=== PATIENT | female | born 1935 | race Caucasian/White ===

== ENCOUNTER 2017-09-27 10:17 | Emergency (ER) | payer MEDICARE, MEDICAID ==
[~2017-09-27] VITALS: Ht 162.6 cm; Wt 81.8 kg
[~2017-09-27 10:17] MED LIST: ALBU6.7H INH; ASCO500T9; ASPI325T53 PO; CLOP75TA15 PO; CLOP75TA35 PO; DOCU-28 PO; FENTANYL PO; FLAX100010 PO; FLUT1DIS INH; GABA-532 PO; GABA600T2 PO; LEVO75TA7 PO; MAGN500T12 PO; METH-234 PO; OMEG300C2 PO; OMEP20CA4 PO; POLY119P2 PO; ROSU10TA PO; SELE200T25 PO; SIMV20TA5 PO
[2017-09-27] MEDS ORDERED: lactulose 20gm/30ml cup PO ONE (11:05)
[2017-09-27 11:39] LABS: BASOPHILS % (AUTO) 0.3 % (0-1); EOSINOPHILS # (AUTO) 0.1 X10'3 (0-0.9); HEMATOCRIT 38.2 % (35.0-45.0); LYMPHOCYTES # (AUTO) 1.6 X10'3 (1.1-4.8); LYMPHOCYTES % (AUTO) 14.6 % (21-51); MEAN CORPUSCULAR HEMOGLOBIN 28.4 PG (27.0-31.0); MEAN CORPUSCULAR VOLUME 83.6 FL (78-98); MEAN PLATELET VOLUME 6.8 FL (7.4-10.4); MONOCYTES # (AUTO) 1.1 X10'3 (0-0.9); MONOCYTES % (AUTO) 9.4 % (2-12); NEUTROPHILS # (AUTO) 8.3 X10'3 (1.8-7.7); NEUTROPHILS % (AUTO) 74.7 % (42-75); PLATELET COUNT 268 X10'3 (140-440); RED BLOOD COUNT 4.56 X10'6 (4.20-5.60); RED CELL DISTRIBUTION WIDTH 14.2 % (11.5-14.5); WHITE BLOOD COUNT 11.2 X10'3 (4.5-11.0)
[2017-09-27 11:55] LABS: ALANINE AMINOTRANSFERASE 22 U/L (12-78); ALBUMIN 3.2 G/DL (3.4-5.0); ALBUMIN/GLOBULIN RATIO 0.9 (1.1-1.5); ALKALINE PHOSPHATASE 54 IU/L (46-116); ANION GAP 8 (8-16); ASPARTATE AMINO TRANSFERASE 19 U/L (10-37); BILIRUBIN,TOTAL 0.6 MG/DL (0.1-1.0); BLOOD UREA NITROGEN 14 MG/DL (7-18); BUN/CREATININE RATIO 17.1 (6.6-38.0); CALCIUM 8.5 MG/DL (8.5-10.1); CHLORIDE 105 MMOL/L (99-107); CREATININE 0.82 MG/DL (0.40-0.90); GLUCOSE 107 MG/DL (70-104); POTASSIUM 3.7 MMOL/L (3.5-5.1); SODIUM 143 MMOL/L (135-145); TOTAL CARBON DIOXIDE 30.5 MMOL/L (24-32); TOTAL PROTEIN 6.7 G/DL (6.4-8.2); eGFR 67 ML/MIN
[2017-09-27] MEDS ORDERED: MAGN296S50 PO (12:25)
[2017-09-27 12:36] VITALS: BP 121/68
== END 2017-09-27 13:07 | disposition home or self-care (01) ==
LOC: ER 10:17
DX: K59.00 Constipation, unspecified (principal); F17.200 Nicotine dependence, unspecified, uncomplicated; I25.10 Atherosclerotic heart disease of native coronary artery without angina pectoris; J45.909 Unspecified asthma, uncomplicated; E11.9 Type 2 diabetes mellitus without complications; G89.29 Other chronic pain; Z90.49 Acquired absence of other specified parts of digestive tract; Z98.890 Other specified postprocedural states; Z88.0 Allergy status to penicillin; Z88.5 Allergy status to narcotic agent; Z91.018 Allergy to other foods; Z79.82 Long term (current) use of aspirin
CPT/HCPCS: 36415; 74176; 80053; 85025; 99285

== ENCOUNTER 2018-10-06 10:46 | Emergency (ER) | payer MEDICARE, MEDICAID ==
[~2018-10-06] VITALS: Ht 160 cm; Wt 85.0 kg
[~2018-10-06 10:46] MED LIST changes: +GABA600T13 PO; -GABA600T2 PO; +MAGN296S50 PO; -ROSU10TA PO; +ROSU10TA2 PO
[2018-10-06] MEDS ORDERED: magnesium hydroxide 30ml (MOM) UD suspension PO ONE (11:15)
[2018-10-06] MEDS ORDERED: bisacodyl 5mg tablet.DR PO PRN (11:15)
[2018-10-06] MEDS ORDERED: lactulose 20gm/30ml cup PO ONE (11:15)
[2018-10-06] MEDS ORDERED: normal saline 1000ML IV soln IVB ONE (11:15)
[2018-10-06] MEDS ORDERED: potassium Cl 20 mEq SR tablet PO STA (11:15)
[2018-10-06 11:17] LABS: BASOPHILS # (AUTO) 0.1 X10'3 (0-0.2); EOSINOPHILS # (AUTO) 0.1 X10'3 (0-0.9); EOSINOPHILS % (AUTO) 1.1 % (0-6); HEMATOCRIT 40.1 % (35.0-45.0); HEMOGLOBIN 13.5 g/dl (12.0-16.0); LYMPHOCYTES % (AUTO) 20.7 % (21-51); MEAN CORPUSCULAR HEMOGLOBIN 28.7 PG (27.0-31.0); MEAN CORPUSCULAR HGB CONC 33.6 g/dL (33.0-36.5); MEAN CORPUSCULAR VOLUME 85.4 FL (78-98); MEAN PLATELET VOLUME 6.7 FL (7.4-10.4); MONOCYTES # (AUTO) 0.9 X10'3 (0-0.9); MONOCYTES % (AUTO) 9.6 % (2-12); NEUTROPHILS # (AUTO) 6.4 X10'3 (1.8-7.7); NEUTROPHILS % (AUTO) 67.6 % (42-75); PLATELET COUNT 338 X10'3 (140-440); RED CELL DISTRIBUTION WIDTH 14.5 % (11.5-14.5); WHITE BLOOD COUNT 9.5 X10'3 (4.5-11.0)
[2018-10-06 11:25] LABS: PROTHROMBIN TIME 10.4 SECONDS (9.0-12.0)
[2018-10-06 11:29] LABS: ALANINE AMINOTRANSFERASE 19 U/L (12-78); ALBUMIN 3.7 G/DL (3.4-5.0); ALKALINE PHOSPHATASE 65 IU/L (46-116); ANION GAP 11 (8-16); ASPARTATE AMINO TRANSFERASE 19 U/L (10-37); BILIRUBIN,TOTAL 0.5 MG/DL (0.1-1.0); BLOOD UREA NITROGEN 17 MG/DL (7-18); BUN/CREATININE RATIO 15.7 (6.6-38.0); CALCIUM 8.8 MG/DL (8.5-10.1); CHLORIDE 104 MMOL/L (99-107); CREATININE 1.08 MG/DL (0.40-0.90); GLUCOSE 133 MG/DL (70-104); POTASSIUM 3.2 MMOL/L (3.5-5.1); SODIUM 142 MMOL/L (135-145); TOTAL CARBON DIOXIDE 26.7 MMOL/L (24-32); TOTAL PROTEIN 7.4 G/DL (6.4-8.2); eGFR 49 ML/MIN
[2018-10-06 13:04] LABS: CLARITY,URINE SLIGHTLY CLOUDY (Clear); COLOR,URINE YELLOW (Yellow); GLUCOSE, URINE NEGATIVE (Neg); KETONES,URINE 40 mg/dl (Neg); LEUKOCYTE ESTERASE ,URINE NEGATIVE (Neg); NITRITES, URINE NEGATIVE (Neg); OCCULT BLOOD,URINE SMALL (Neg); PROTEIN,URINE NEGATIVE (Neg); UROBILINOGEN,URINE 0.2 E.U/dL (0.2-1.0)
[2018-10-06 13:08] LABS: UA COLLECTION TYPE CLN CATCH MIDSTREAM
[2018-10-06 13:17] LABS: HYALINE CASTS 0-3 /LPF (NEGATIVE); MUCUS STRANDS FEW /LPF (Neg); SQUAMOUS EPITHELIAL CELL,UR MODERATE /LPF (FEW)
[2018-10-06 13:18] LABS: RBC,URINE 20-50 /HPF (0-2)
[2018-10-06 13:19] LABS: WBC,URINE 0-4 /HPF (0-4)
[2018-10-06 13:20] LABS: BACTERIA,URINE FEW /HPF (Neg)
[2018-10-06 14:36] VITALS: BP 124/65
[2018-10-06] MEDS ORDERED: POTA20TA19 PO (14:41)
== END 2018-10-06 14:53 | disposition home or self-care (01) ==
LOC: ER 10:47
DX: K59.00 Constipation, unspecified (principal); I25.10 Atherosclerotic heart disease of native coronary artery without angina pectoris; J45.909 Unspecified asthma, uncomplicated; E11.9 Type 2 diabetes mellitus without complications; G89.29 Other chronic pain; Z90.49 Acquired absence of other specified parts of digestive tract; Z98.890 Other specified postprocedural states; Z88.0 Allergy status to penicillin; Z91.018 Allergy to other foods; Z88.8 Allergy status to other drugs, medicaments and biological substances; Z79.82 Long term (current) use of aspirin; Z79.899 Other long term (current) drug therapy
CPT/HCPCS: 36415; 80053; 81001; 85025; 85610; 99284; J7030

== ENCOUNTER 2019-04-16 09:31 | Emergency (ER) | payer MEDICARE, MEDICAID ==
[~2019-04-16] VITALS: Ht 162.6 cm; Wt 77.3 kg
[~2019-04-16 09:31] MED LIST changes: -ALBU6.7H INH; +ALBU6.7H9 INH; -ASPI325T53 PO; +SIMV-42 PO; -SIMV20TA5 PO; +[UNRECOGNIZED DRUG - CODE] PO
[2019-04-16 10:36] LABS: BASOPHILS # (AUTO) 0.1 X10'3 (0-0.2); BASOPHILS % (AUTO) 1.4 % (0-1); EOSINOPHILS # (AUTO) 0.2 X10'3 (0-0.9); EOSINOPHILS % (AUTO) 5.5 % (0-6); HEMATOCRIT 39.3 % (35.0-45.0); LYMPHOCYTES # (AUTO) 1.6 X10'3 (1.1-4.8); LYMPHOCYTES % (AUTO) 38.4 % (21-51); MEAN CORPUSCULAR HEMOGLOBIN 27.6 PG (27.0-31.0); MEAN CORPUSCULAR HGB CONC 33.2 g/dL (33.0-36.5); MEAN CORPUSCULAR VOLUME 83.2 FL (78-98); MEAN PLATELET VOLUME 6.7 FL (7.4-10.4); MONOCYTES # (AUTO) 0.5 X10'3 (0-0.9); MONOCYTES % (AUTO) 12.9 % (2-12); NEUTROPHILS # (AUTO) 1.8 X10'3 (1.8-7.7); NEUTROPHILS % (AUTO) 41.8 % (42-75); PLATELET COUNT 260 X10'3 (140-440); RED BLOOD COUNT 4.72 X10'6 (4.20-5.60); WHITE BLOOD COUNT 4.2 X10'3 (4.5-11.0)
[2019-04-16 10:45] LABS: CLARITY,URINE CLEAR (Clear); COLOR,URINE YELLOW (Yellow); GLUCOSE, URINE NEGATIVE (Neg); KETONES,URINE NEGATIVE (Neg); LEUKOCYTE ESTERASE ,URINE NEGATIVE (Neg); NITRITES, URINE NEGATIVE (Neg); OCCULT BLOOD,URINE MODERATE (Neg); PH,URINE 6.5 (4.8-8.0); PROTEIN,URINE NEGATIVE (Neg); UROBILINOGEN,URINE 0.2 E.U/dL (0.2-1.0)
[2019-04-16 10:46] LABS: UA COLLECTION TYPE STRAIGHT CATH
[2019-04-16 10:50] LABS: ALANINE AMINOTRANSFERASE 18 U/L (12-78); ALBUMIN 3.3 G/DL (3.4-5.0); ALKALINE PHOSPHATASE 52 IU/L (46-116); ANION GAP 7 (8-16); ASPARTATE AMINO TRANSFERASE 16 U/L (10-37); BILIRUBIN,TOTAL 0.2 MG/DL (0.1-1.0); BLOOD UREA NITROGEN 11 MG/DL (7-18); BUN/CREATININE RATIO 12.8 (6.6-38.0); CALCIUM 8.6 MG/DL (8.5-10.1); CHLORIDE 109 MMOL/L (99-107); CREATININE 0.86 MG/DL (0.40-0.90); GLUCOSE 99 MG/DL (70-104); POTASSIUM 3.9 MMOL/L (3.5-5.1); SODIUM 145 MMOL/L (135-145); TOTAL CARBON DIOXIDE 28.9 MMOL/L (24-32); TOTAL PROTEIN 6.7 G/DL (6.4-8.2); eGFR 63 ML/MIN
[2019-04-16 11:19] LABS: BACTERIA,URINE FEW /HPF (Neg); SQUAMOUS EPITHELIAL CELL,UR FEW /LPF (FEW)
[2019-04-16 11:20] LABS: WBC,URINE 0-4 /HPF (0-4)
[2019-04-16] MEDS ORDERED: normal saline 1000ML IV soln IVB ONE (12:05)
[2019-04-16] MEDS ORDERED: morphine 4 MG/ML inj SYRINge IV PRN (12:05)
[2019-04-16] MEDS ORDERED: ondansetron/PF 4mg/2ml inj IV ONE (12:05)
[2019-04-16] MEDS ORDERED: METH-360 PO (13:06)
[2019-04-16 14:24] VITALS: BP 142/83
== END 2019-04-16 14:26 | disposition home or self-care (01) ==
LOC: ER 09:33
DX: S39.012A Strain of muscle, fascia and tendon of lower back, initial encounter (principal); K59.00 Constipation, unspecified; R39.198 Other difficulties with micturition; I25.10 Atherosclerotic heart disease of native coronary artery without angina pectoris; J45.909 Unspecified asthma, uncomplicated; E11.9 Type 2 diabetes mellitus without complications; G89.29 Other chronic pain; Z79.82 Long term (current) use of aspirin; Z88.0 Allergy status to penicillin; Z88.6 Allergy status to analgesic agent; Z91.018 Allergy to other foods; Z79.899 Other long term (current) drug therapy; Z90.49 Acquired absence of other specified parts of digestive tract; Z98.890 Other specified postprocedural states; Z95.1 Presence of aortocoronary bypass graft; Z86.73 Personal history of transient ischemic attack (TIA), and cerebral infarction without residual deficits; X58.XXXA Exposure to other specified factors, initial encounter; Y93.89 Activity, other specified; Y92.89 Other specified places as the place of occurrence of the external cause; Y99.8 Other external cause status
CPT/HCPCS: 36415; 74176; 80053; 81001; 85025; 85610; 96361; 96374; 96375; 99284; J2270; J2405; J7030; P9612

== ENCOUNTER 2019-05-25 15:18 | Emergency (ER) | payer MEDICARE, MEDICAID ==
[~2019-05-25] VITALS: Ht 162.6 cm; Wt 80.0 kg
[~2019-05-25 15:18] MED LIST changes: +METH-360 PO
[2019-05-25] MEDS ORDERED: LORazepam 2 mg/ml vial IV ONE (15:45)
[2019-05-25] MEDS ORDERED: normal saline 1000ML IV soln IVB ONE (15:45)
[2019-05-25 16:04] LABS: BASOPHILS % (AUTO) 0.6 % (0-1); EOSINOPHILS # (AUTO) 0.2 X10'3 (0-0.9); EOSINOPHILS % (AUTO) 2.9 % (0-6); HEMATOCRIT 40.2 % (35.0-45.0); HEMOGLOBIN 13.4 g/dl (12.0-16.0); LYMPHOCYTES # (AUTO) 2.2 X10'3 (1.1-4.8); LYMPHOCYTES % (AUTO) 39.2 % (21-51); MEAN CORPUSCULAR HEMOGLOBIN 28.2 PG (27.0-31.0); MEAN CORPUSCULAR HGB CONC 33.4 g/dL (33.0-36.5); MEAN CORPUSCULAR VOLUME 84.5 FL (78-98); MEAN PLATELET VOLUME 6.8 FL (7.4-10.4); MONOCYTES # (AUTO) 0.7 X10'3 (0-0.9); MONOCYTES % (AUTO) 11.9 % (2-12); NEUTROPHILS # (AUTO) 2.6 X10'3 (1.8-7.7); NEUTROPHILS % (AUTO) 45.4 % (42-75); PLATELET COUNT 249 X10'3 (140-440); RED BLOOD COUNT 4.76 X10'6 (4.20-5.60); RED CELL DISTRIBUTION WIDTH 14.3 % (11.5-14.5); WHITE BLOOD COUNT 5.6 X10'3 (4.5-11.0)
[2019-05-25 16:18] LABS: ALANINE AMINOTRANSFERASE 15 U/L (12-78); ALBUMIN 3.3 G/DL (3.4-5.0); ALBUMIN/GLOBULIN RATIO 0.9 (1.1-1.5); ALKALINE PHOSPHATASE 51 IU/L (46-116); ANION GAP 3 (8-16); ASPARTATE AMINO TRANSFERASE 17 U/L (10-37); BILIRUBIN,TOTAL 0.2 MG/DL (0.1-1.0); BLOOD UREA NITROGEN 21 MG/DL (7-18); BUN/CREATININE RATIO 23.9 (6.6-38.0); CALCIUM 9.1 MG/DL (8.5-10.1); CHLORIDE 107 MMOL/L (99-107); CREATININE 0.88 MG/DL (0.40-0.90); GLUCOSE 92 MG/DL (70-104); POTASSIUM 3.9 MMOL/L (3.5-5.1); SODIUM 143 MMOL/L (135-145); TOTAL CARBON DIOXIDE 32.8 MMOL/L (24-32); eGFR 62 ML/MIN
[2019-05-25 16:25] LABS: MAGNESIUM 1.6 MG/DL (1.5-2.4)
[2019-05-25 17:00] LABS: CLARITY,URINE CLEAR (Clear); COLOR,URINE YELLOW (Yellow); GLUCOSE, URINE NEGATIVE (Neg); KETONES,URINE NEGATIVE (Neg); LEUKOCYTE ESTERASE ,URINE LARGE (Neg); NITRITES, URINE NEGATIVE (Neg); OCCULT BLOOD,URINE SMALL (Neg); PH,URINE 6.5 (4.8-8.0); PROTEIN,URINE NEGATIVE (Neg); UROBILINOGEN,URINE 0.2 E.U/dL (0.2-1.0)
--- NOTE | 2019-05-25 17:10 | NUR ---
relieving RN for lunch, pt is resting quietly on gurney, resp even and unlabored, waiting for UA results, family at bedside
[2019-05-25 17:14] LABS: UA COLLECTION TYPE CLN CATCH MIDSTREAM
[2019-05-25 17:15] LABS: BACTERIA,URINE FEW /HPF (Neg); TRANSITIONAL EPI CELLS,URINE FEW /HPF; WBC CLUMPS,URINE FEW /HPF (NEGATIVE)
[2019-05-25 17:16] LABS: MUCUS STRANDS FEW /LPF (Neg); SQUAMOUS EPITHELIAL CELL,UR MODERATE /LPF (FEW)
[2019-05-25 18:12] VITALS: BP 124/73
== END 2019-05-25 18:14 | disposition home or self-care (01) ==
LOC: ER 15:19
DX: R07.89 Other chest pain (principal); R42 Dizziness and giddiness; F41.9 Anxiety disorder, unspecified; I25.10 Atherosclerotic heart disease of native coronary artery without angina pectoris; J45.909 Unspecified asthma, uncomplicated; E11.9 Type 2 diabetes mellitus without complications; G89.29 Other chronic pain; Z95.1 Presence of aortocoronary bypass graft; Z90.49 Acquired absence of other specified parts of digestive tract; Z98.890 Other specified postprocedural states; Z79.82 Long term (current) use of aspirin; Z79.899 Other long term (current) drug therapy; Z88.0 Allergy status to penicillin; Z91.018 Allergy to other foods
CPT/HCPCS: 36415; 70450; 71045; 80053; 81001; 83735; 83880; 84145; 84484; 85025; 93005; 96374; 99284; J2060; J7030

== ENCOUNTER 2020-04-14 12:32 | Observation (INO) | payer MEDICARE, MEDICAID ==
[~2020-04-14] VITALS: Ht 162.6 cm; Wt 84.1 kg
[~2020-04-14 12:32] MED LIST changes: -ASCO500T9; -MAGN296S50 PO; +MAGN296S70 PO; +[UNRECOGNIZED DRUG - CODE]
[2020-04-14] MEDS ORDERED: nitroGLYCERIN 0.4mg SUBLingual tab SL PRN ×3 (13:05→14:15)
[2020-04-14] MEDS ORDERED: aspirin 81mg tab.chew PO ONE (13:05)
[2020-04-14 13:25] LABS: BASOPHILS # (AUTO) 0.1 X10'3 (0-0.2); BASOPHILS % (AUTO) 1.1 % (0-1); EOSINOPHILS % (AUTO) 0.3 % (0-6); HEMATOCRIT 43.8 % (35.0-45.0); HEMOGLOBIN 14.4 g/dl (12.0-16.0); LYMPHOCYTES # (AUTO) 1.6 X10'3 (1.1-4.8); LYMPHOCYTES % (AUTO) 19.1 % (21-51); MEAN CORPUSCULAR HEMOGLOBIN 27.1 PG (27.0-31.0); MEAN CORPUSCULAR HGB CONC 32.7 g/dL (33.0-36.5); MEAN CORPUSCULAR VOLUME 82.8 FL (78-98); MEAN PLATELET VOLUME 7.1 FL (7.4-10.4); MONOCYTES # (AUTO) 0.6 X10'3 (0-0.9); MONOCYTES % (AUTO) 7.5 % (2-12); NEUTROPHILS # (AUTO) 6.2 X10'3 (1.8-7.7); PLATELET COUNT 300 X10'3 (140-440); RED BLOOD COUNT 5.29 X10'6 (4.20-5.60); RED CELL DISTRIBUTION WIDTH 14.4 % (11.5-14.5); WHITE BLOOD COUNT 8.6 X10'3 (4.5-11.0)
[2020-04-14 13:32] LABS: PARTIAL THROMBOPLASTIN TIME 24 SECONDS (22-32)
[2020-04-14 13:35] LABS: ALANINE AMINOTRANSFERASE 19 U/L (12-78); ALBUMIN 3.7 G/DL (3.4-5.0); ALKALINE PHOSPHATASE 51 IU/L (46-116); ANION GAP 4 (8-16); ASPARTATE AMINO TRANSFERASE 13 U/L (10-37); BILIRUBIN,TOTAL 0.5 MG/DL (0.1-1.0); BLOOD UREA NITROGEN 12 MG/DL (7-18); BUN/CREATININE RATIO 11.9 (6.6-38.0); CALCIUM 9.8 MG/DL (8.5-10.1); CHLORIDE 103 MMOL/L (99-107); CREATININE 1.01 MG/DL (0.40-0.90); GLUCOSE 142 MG/DL (70-104); POTASSIUM 3.8 MMOL/L (3.5-5.1); SODIUM 139 MMOL/L (135-145); TOTAL CARBON DIOXIDE 31.7 MMOL/L (24-32); TOTAL PROTEIN 7.5 G/DL (6.4-8.2); eGFR 52 ML/MIN
[2020-04-14 13:41] LABS: C-REACTIVE PROTEIN 0.07 MG/DL (0.0-0.5); LIPASE 51 U/L (73-393)
[2020-04-14 13:58] LABS: CLARITY,URINE SLIGHTLY CLOUDY (Clear); COLOR,URINE YELLOW (Yellow); GLUCOSE, URINE NEGATIVE (Neg); KETONES,URINE TRACE mg/dl (Neg); LEUKOCYTE ESTERASE ,URINE SMALL (Neg); NITRITES, URINE NEGATIVE (Neg); OCCULT BLOOD,URINE SMALL (Neg); PROTEIN,URINE TRACE mg/dl (Neg); UROBILINOGEN,URINE 0.2 E.U/dL (0.2-1.0)
[2020-04-14 13:59] LABS: UA COLLECTION TYPE CLN CATCH MIDSTREAM
[2020-04-14 14:04] LABS: BACTERIA,URINE 1+ /HPF (Neg); MUCUS STRANDS NONE SEEN /LPF (Neg); RBC,URINE 20-50 /HPF (0-2); SQUAMOUS EPITHELIAL CELL,UR MODERATE /LPF (FEW)
[2020-04-14 14:05] LABS: FINE GRANULAR CAST 0-3 /LPF (NEGATIVE)
--- NOTE | 2020-04-14 14:05 | NUR ---
Pt gave consent to update daughter on status. Per Lizzie, pt initially c/o abdominal pain and has a hx of constipation. Communicated information w/ primary RN Carlita.
[2020-04-14] MEDS ORDERED: glucagon, human recombinant 1mg kit SUBCUT PRN (14:15)
[2020-04-14] MEDS ORDERED: potassium CL 10mEq/100ml bag 100 ML IV PRN ×2 (14:15)
[2020-04-14] MEDS ORDERED: aminophylline 250mg/10ml inj. IV PRN (14:15)
[2020-04-14] MEDS ORDERED: mag hydrox/Alum hydrox/simeth 30ml oral suspension PO PRN (14:15)
[2020-04-14] MEDS ORDERED: potassium Cl 20 mEq SR tablet PO PRN ×2 (14:15)
[2020-04-14] MEDS ORDERED: insulin Lispro (HumaLOG) vial - multi-dose SQ SCH (14:15)
[2020-04-14] MEDS ORDERED: magnesium 4gm in 100ml NS 100 ML IV PRN (14:15)
[2020-04-14] MEDS ORDERED: HYDROcodone/acetaminophen 10/325mg tab PO PRN (14:15)
[2020-04-14] MEDS ORDERED: magnesium Cl slow-release 64mg tablet PO PRN (14:15)
[2020-04-14] MEDS ORDERED: dextrose ORAL solution 15 GM/59 ML bottle PO PRN ×2 (14:15)
[2020-04-14] MEDS ORDERED: acetaminophen 325mg tablet PO PRN ×2 (14:15)
[2020-04-14] MEDS ORDERED: ondansetron/PF 4mg/2ml inj IV PRN (14:15)
[2020-04-14] MEDS ORDERED: HYDROcodone/acetaminophen 5mg/325mg tablet PO PRN (14:15)
[2020-04-14] MEDS ORDERED: regadenoson 0.4mg/5ml syringe IV PRN (14:15)
[2020-04-14] MEDS ORDERED: metoprolol tartrate 1mg/ml inj IV PRN (14:15)
[2020-04-14] MEDS ORDERED: dextrose 50%-water 50ml dispensing syringe IV PRN ×2 (14:15)
[2020-04-14] MEDS ORDERED: MESSAGE TO PHARMACY PO ONE (14:15)
[2020-04-14] MEDS ORDERED: magnesium 2GM in 50ml NS 50 ML IV PRN (14:15)
[2020-04-14] MEDS ORDERED: DOCU100C40 PO (14:17)
[2020-04-14] MEDS: normal saline 1000ml 1,000 ML IV SCH (14:51)
[2020-04-14] MEDS ORDERED: NIA500ERT PO (14:58)
[2020-04-14] MEDS ORDERED: MAGN400O6 PO (14:58)
[2020-04-14] MEDS ORDERED: SIMV10TA2 PO (14:58)
[2020-04-14] MEDS ORDERED: SENN-263 PO (14:58)
[2020-04-14] MEDS ORDERED: [UNRECOGNIZED DRUG - CODE] (15:02)
[2020-04-14] MEDS ORDERED: CHL4T (15:02)
[2020-04-14] MEDS ORDERED: ALEN70TA60 PO (15:02)
[2020-04-14] MEDS ORDERED: calcium PO (15:02)
[2020-04-14] MEDS ORDERED: [UNRECOGNIZED DRUG - OTHER] PO (15:04)
[2020-04-14] MEDS ORDERED: OMEG-79 PO (15:04)
[2020-04-14] MEDS ORDERED: ESTER C PO (15:04)
[2020-04-14] MEDS ORDERED: heparin 10,000 units/1 ML INJ IV ONE (15:25)
[2020-04-14] MEDS ORDERED: non-formulary drug (Alendronate Sodium* (Fosamax*) 1 TAB) PO SCH (15:25)
[2020-04-14] MEDS ORDERED: heparin 10,000 units/1 ML INJ IV PRN (15:25)
[2020-04-14] MEDS ORDERED: heparin 25,000 UNIT/250ml bag 250 ML IV SCH (15:25)
[2020-04-14] MEDS: heparin 25,000 UNIT/250ml bag 250 ML IV SCH (16:52)
--- NOTE | 2020-04-14 17:01 | NUR ---
PT'S daughter called and asked to be called when the pt gets a room assignment. updated her on the plan.
[2020-04-14 17:32] LABS: HEMOGLOBIN A1C 6.5 % (4.5-6.2)
--- NOTE | 2020-04-14 18:07 | NUR ---
pt eating her dinner.
[2020-04-14 19:45] VITALS: BP 167/80
--- NOTE | 2020-04-14 19:45 | NUR ---
I have received report from Yadira HANCOCK and had the opportunity to ask questions and assume patient care.
--- NOTE | 2020-04-14 19:50 | NUR ---
pt to floor
[2020-04-14] MEDS: K and/or MAG REPLACEMENT MC SCH (20:00)
[2020-04-14] MEDS: gabapentin 300mg capsule PO SCH (20:28)
[2020-04-14] MEDS: sennosides 8.6mg tablet PO SCH (20:29)
[2020-04-14] MEDS: docusate sod 100mg capsule PO SCH (20:29)
[2020-04-14] MEDS ORDERED: insulin glargine (Lantus) pen - multi-dose SQ SCH (21:00)
[2020-04-14] MEDS ORDERED: atorvastatin 10mg tablet PO SCH (21:00)
[2020-04-14 22:00] VITALS: BP 133/67
[2020-04-14 23:47] LABS: PARTIAL THROMBOPLASTIN TIME 61 SECONDS (22-32)
[2020-04-15] VITALS (8 sets, daily range): BP systolic 93–137; BP diastolic 53–78
[2020-04-15] MEDS: heparin 25,000 UNIT/250ml bag 250 ML IV SCH ×4 (00:10→07:24)
--- NOTE | 2020-04-15 00:10 | NUR ---
Heprin drip decreased 1 unit per protocol
--- NOTE | 2020-04-15 02:30 | NUR ---
Pharmacy deleted and re-add Heprin rx to eMAR, Heprin drip decreased 1 unit (from 10mL/hr to 9mL/hr).
[2020-04-15] MEDS: normal saline 1000ml 1,000 ML IV SCH (03:45)
--- NOTE | 2020-04-15 06:41 | NUR ---
Problems reprioritized. Patient report given, questions answered & plan of care reviewed with Rand HANCOCK.
[2020-04-15 06:51] LABS: BASOPHILS # (AUTO) 0.1 X10'3 (0-0.2); BASOPHILS % (AUTO) 1.5 % (0-1); EOSINOPHILS # (AUTO) 0.2 X10'3 (0-0.9); EOSINOPHILS % (AUTO) 3.4 % (0-6); HEMATOCRIT 38.8 % (35.0-45.0); HEMOGLOBIN 12.8 g/dl (12.0-16.0); LYMPHOCYTES # (AUTO) 1.8 X10'3 (1.1-4.8); LYMPHOCYTES % (AUTO) 37.9 % (21-51); MEAN CORPUSCULAR HEMOGLOBIN 27.3 PG (27.0-31.0); MEAN CORPUSCULAR HGB CONC 33.1 g/dL (33.0-36.5); MEAN CORPUSCULAR VOLUME 82.6 FL (78-98); MEAN PLATELET VOLUME 7.2 FL (7.4-10.4); MONOCYTES # (AUTO) 0.6 X10'3 (0-0.9); MONOCYTES % (AUTO) 12.6 % (2-12); NEUTROPHILS # (AUTO) 2.2 X10'3 (1.8-7.7); NEUTROPHILS % (AUTO) 44.6 % (42-75); PLATELET COUNT 260 X10'3 (140-440); WHITE BLOOD COUNT 4.8 X10'3 (4.5-11.0)
[2020-04-15 07:05] LABS: ALANINE AMINOTRANSFERASE 19 U/L (12-78); ALBUMIN/GLOBULIN RATIO 0.9 (1.1-1.5); ALKALINE PHOSPHATASE 41 IU/L (46-116); ANION GAP 7 (8-16); ASPARTATE AMINO TRANSFERASE 14 U/L (10-37); BILIRUBIN,TOTAL 0.4 MG/DL (0.1-1.0); BLOOD UREA NITROGEN 11 MG/DL (7-18); BUN/CREATININE RATIO 15.5 (6.6-38.0); CHLORIDE 105 MMOL/L (99-107); CREATININE 0.71 MG/DL (0.40-0.90); GLUCOSE 115 MG/DL (70-104); MAGNESIUM 1.8 MG/DL (1.5-2.4); POTASSIUM 3.5 MMOL/L (3.5-5.1); SODIUM 141 MMOL/L (135-145); TOTAL CARBON DIOXIDE 29.3 MMOL/L (24-32); TOTAL PROTEIN 6.2 G/DL (6.4-8.2); eGFR 79 ML/MIN
[2020-04-15] MEDS ORDERED: heparin 25,000 UNIT/250ml bag 250 ML IV SCH (07:28)
[2020-04-15] MEDS ORDERED: ascorbic acid 500mg tablet PO SCH (08:00)
[2020-04-15] MEDS: docusate sod 100mg capsule PO SCH (08:00)
[2020-04-15] MEDS ORDERED: OMEGA-3/DHA/EPA/FISH OIL 1 EACH CAPSULE.DR PO SCH (08:00)
[2020-04-15] MEDS: sennosides 8.6mg tablet PO SCH (08:00)
[2020-04-15] MEDS ORDERED: calcium carbonate 500mg tablet PO SCH (08:00)
[2020-04-15] MEDS: K and/or MAG REPLACEMENT MC SCH (08:00)
--- NOTE | 2020-04-15 08:26 | NUR ---
Patient to stress lab
[2020-04-15] MEDS ORDERED: FLU VACC QS2020-21(6MOS UP)/PF 60 MCG/0.5 ML SYRINGE IMVAC ONE (10:00)
--- NOTE | 2020-04-15 12:48 | NUR ---
PAGER ID: [phone] MESSAGE: [id number] Octavia Govea Stop the heparin and PTT draw Rand [id number]
--- NOTE | 2020-04-15 13:05 | NUR ---
Patient was in procedure at 1000 vitals Addendum: 04/15/20 at 1306 by Rand Lenz RN Amended: Links added.
[2020-04-15] MEDS ORDERED: PANT-47 PO (14:31)
[2020-04-15] MEDS: gabapentin 300mg capsule PO SCH (15:00)
--- NOTE | 2020-04-17 13:06 | NUR ---
Case management DC follow up: unable to LM, pt recording, "not accepting phone calls at this time"
== END 2020-04-15 15:15 | disposition home or self-care (01) ==
LOC: ER 12:32 → ED HOLD 14:15 → INTOOBSV 14:15 → ORTHO 4S 19:52
PROVIDERS: ADMIT Family Medicine; ATTEND Family Medicine
DX: R07.89 Other chest pain (principal); I25.110 Atherosclerotic heart disease of native coronary artery with unstable angina pectoris; I10 Essential (primary) hypertension; E11.40 Type 2 diabetes mellitus with diabetic neuropathy, unspecified; E78.5 Hyperlipidemia, unspecified; Z85.3 Personal history of malignant neoplasm of breast; N28.9 Disorder of kidney and ureter, unspecified; J45.909 Unspecified asthma, uncomplicated; Z23 Encounter for immunization; Z87.891 Personal history of nicotine dependence; Z86.73 Personal history of transient ischemic attack (TIA), and cerebral infarction without residual deficits; Z95.5 Presence of coronary angioplasty implant and graft; Z90.49 Acquired absence of other specified parts of digestive tract; Z79.02 Long term (current) use of antithrombotics/antiplatelets; Z79.82 Long term (current) use of aspirin; Z79.899 Other long term (current) drug therapy; Z88.0 Allergy status to penicillin; Z88.8 Allergy status to other drugs, medicaments and biological substances; Z91.018 Allergy to other foods; Z91.048 Other nonmedicinal substance allergy status
CPT/HCPCS: 36415; 71045; 78452; 80053; 81001; 82948; 83036; 83690; 83735; 83880; 84484; 85025; 85610; 85730; 86140; 87081; 87088; 93005; 93017; 93306; 96361; 96365; 96366; 96376; 97110; 97161; 99285; A9500; G0008; G0378; J1644; J1815; J2785; J7030; Q2039

== ENCOUNTER 2021-01-15 14:01 | Emergency (ER) | payer BC, MEDICAID ==
[~2021-01-15] VITALS: Ht 162.6 cm; Wt 81.8 kg
[~2021-01-15 14:01] MED LIST changes: -ALBU6.7H9 INH; +ALEN70TA60 PO; +ASPI325T5 PO; +CHL4T; -CLOP75TA35 PO; -DOCU-28 PO; +DOCU100C40 PO; +ESTER C PO; -FENTANYL PO; -FLAX100010 PO; -FLUT1DIS INH; -GABA-532 PO; -LEVO75TA7 PO; -MAGN296S70 PO; +MAGN400O6 PO; -MAGN500T12 PO; -METH-234 PO; -METH-360 PO; +NIA500ERT PO; +OMEG-79 PO; -OMEG300C2 PO; -OMEP20CA4 PO; +PANT-47 PO; -POLY119P2 PO; -ROSU10TA2 PO; -SELE200T25 PO; +SENN-263 PO; -SIMV-42 PO; +SIMV10TA2 PO; +[UNRECOGNIZED DRUG - CODE]; -[UNRECOGNIZED DRUG - CODE] PO; +[UNRECOGNIZED DRUG - OTHER] PO; +calcium PO
--- NOTE | 2021-01-15 18:45 | NUR ---
pt was asleep in bed and rolled over and fell out.
[2021-01-15 18:46] VITALS: BP 147/84
== END 2021-01-16 06:47 | disposition home or self-care (01) ==
LOC: ER 14:02
DX: S40.011A Contusion of right shoulder, initial encounter (principal); S70.01XA Contusion of right hip, initial encounter; S06.0X0A Concussion without loss of consciousness, initial encounter; R20.0 Anesthesia of skin; I25.10 Atherosclerotic heart disease of native coronary artery without angina pectoris; J45.909 Unspecified asthma, uncomplicated; E11.9 Type 2 diabetes mellitus without complications; G89.29 Other chronic pain; Z90.89 Acquired absence of other organs; Z90.49 Acquired absence of other specified parts of digestive tract; Z98.890 Other specified postprocedural states; Z88.8 Allergy status to other drugs, medicaments and biological substances; Z91.018 Allergy to other foods; Z79.82 Long term (current) use of aspirin; Z79.899 Other long term (current) drug therapy; W18.30XA Fall on same level, unspecified, initial encounter; Y93.89 Activity, other specified; Y92.89 Other specified places as the place of occurrence of the external cause; Y99.8 Other external cause status
CPT/HCPCS: 70450; 72125; 73030; 73502; 99285

== ENCOUNTER 2021-02-22 08:53 | Emergency (ER) | payer BC, MEDICAID ==
[~2021-02-22] VITALS: Ht 162.6 cm; Wt 85.0 kg
[~2021-02-22 08:53] MED LIST changes: -ASPI325T5 PO; +[UNRECOGNIZED DRUG - CODE] PO
[2021-02-22] MEDS ORDERED: normal saline 1000ML IV soln IVB ONE (09:25)
[2021-02-22] MEDS ORDERED: ketorolac tromethamine 15mg/ml inj. IV ONE (09:25)
[2021-02-22 10:33] LABS: BASOPHILS % (AUTO) 0.5 % (0-1); EOSINOPHILS % (AUTO) 0.1 % (0-6); HEMOGLOBIN 12.4 g/dl (12.0-16.0); LYMPHOCYTES % (AUTO) 19.3 % (21-51); MEAN CORPUSCULAR HEMOGLOBIN 26.5 PG (27.0-31.0); MEAN CORPUSCULAR HGB CONC 33.3 g/dL (33.0-36.5); MEAN CORPUSCULAR VOLUME 79.5 FL (78-98); MEAN PLATELET VOLUME 7.1 FL (7.4-10.4); MONOCYTES # (AUTO) 0.6 X10'3 (0-0.9); MONOCYTES % (AUTO) 11.2 % (2-12); NEUTROPHILS # (AUTO) 3.5 X10'3 (1.8-7.7); NEUTROPHILS % (AUTO) 68.9 % (42-75); PLATELET COUNT 199 X10'3 (140-440); RED BLOOD COUNT 4.66 X10'6 (4.20-5.60); RED CELL DISTRIBUTION WIDTH 14.7 % (11.5-14.5); WHITE BLOOD COUNT 5.1 X10'3 (4.5-11.0)
[2021-02-22 10:56] LABS: PARTIAL THROMBOPLASTIN TIME 27 SECONDS (22-32)
[2021-02-22 10:57] LABS: ALANINE AMINOTRANSFERASE 20 U/L (12-78); ALBUMIN/GLOBULIN RATIO 0.8 (1.1-1.5); ALKALINE PHOSPHATASE 49 IU/L (46-116); ANION GAP 8 (8-16); ASPARTATE AMINO TRANSFERASE 20 U/L (10-37); BILIRUBIN,TOTAL 0.2 MG/DL (0.1-1.0); BLOOD UREA NITROGEN 11 MG/DL (7-18); BUN/CREATININE RATIO 11.5 (6.6-38.0); CALCIUM 8.6 MG/DL (8.5-10.1); CHLORIDE 105 MMOL/L (99-107); CREATININE 0.96 MG/DL (0.40-0.90); GLUCOSE 109 MG/DL (70-104); LIPASE 66 U/L (73-393); POTASSIUM 3.7 MMOL/L (3.5-5.1); SODIUM 143 MMOL/L (135-145); TOTAL CARBON DIOXIDE 30.3 MMOL/L (24-32); TOTAL PROTEIN 6.7 G/DL (6.4-8.2); eGFR 55 ML/MIN
--- NOTE | 2021-02-22 11:06 | NUR ---
pt came back from ct scan.
[2021-02-22] MEDS ORDERED: acetaminophen 1,000mg/100ml IV 100 ML IV SCH (14:00)
--- NOTE | 2021-02-22 14:16 | NUR ---
WHEN I CAME FROM MY LUNCH BREAK ,RENETTA HANCOCK WAS COVERING FOR THE PT ,PT HAVE NOT RECIVED HER TYLENOL IV MED ,PT GOT ANGRY AND WANTS TO LEAVE NAD GO HOME ,INSTRUCTED PT THAT SHE NEEDED TO STAY INSIDE THE ROOM SHE IS POSITIVE FOR COVID,INFORMED BY RENETTA ROQUE IS AWARE ABOUT PT REFUSING MED IT GOT DELAYED AND WANT TO GO HOME. PT IS D/C READY ,DAUGHTER SHARIF IS GOING TO CORRECTIONAL OFFICER CHIEF PT.
[2021-02-22 14:30] VITALS: BP 110/62
== END 2021-02-22 14:30 | disposition home or self-care (01) ==
LOC: ER 08:53
DX: U07.1 COVID-19 (principal); M54.5 Low back pain; R10.84 Generalized abdominal pain; G89.29 Other chronic pain; I25.10 Atherosclerotic heart disease of native coronary artery without angina pectoris; J45.909 Unspecified asthma, uncomplicated; E11.9 Type 2 diabetes mellitus without complications; Z90.89 Acquired absence of other organs; Z90.49 Acquired absence of other specified parts of digestive tract; Z98.890 Other specified postprocedural states; Z88.0 Allergy status to penicillin; Z91.018 Allergy to other foods; Z88.8 Allergy status to other drugs, medicaments and biological substances; Z79.82 Long term (current) use of aspirin; Z79.899 Other long term (current) drug therapy
CPT/HCPCS: 36415; 71045; 74176; 80053; 83605; 83690; 84484; 85025; 85610; 85730; 87040; 96374; 99285; J1885; J7030

== ENCOUNTER 2021-02-26 12:18 | Inpatient (IN) | payer BC, MEDICAID ==
[~2021-02-26] VITALS: Ht 167.6 cm; Wt 81.8 kg
[2021-02-26] MEDS ORDERED: normal saline 1000ML IV soln IVB ONE (12:45)
[2021-02-26 13:15] LABS: BASOPHILS # (AUTO) 0.1 X10'3 (0-0.2); BASOPHILS % (AUTO) 1.4 % (0-1); EOSINOPHILS % (AUTO) 0 % (0-6); HEMATOCRIT 35.4 % (35.0-45.0); HEMOGLOBIN 11.6 g/dl (12.0-16.0); LYMPHOCYTES % (AUTO) 10.2 % (21-51); MEAN CORPUSCULAR HEMOGLOBIN 26.2 PG (27.0-31.0); MEAN CORPUSCULAR HGB CONC 32.7 g/dL (33.0-36.5); MEAN PLATELET VOLUME 7.1 FL (7.4-10.4); MONOCYTES # (AUTO) 0.8 X10'3 (0-0.9); MONOCYTES % (AUTO) 7.7 % (2-12); NEUTROPHILS # (AUTO) 8.2 X10'3 (1.8-7.7); NEUTROPHILS % (AUTO) 80.7 % (42-75); PLATELET COUNT 323 X10'3 (140-440); RED BLOOD COUNT 4.42 X10'6 (4.20-5.60); RED CELL DISTRIBUTION WIDTH 14.6 % (11.5-14.5); WHITE BLOOD COUNT 10.2 X10'3 (4.5-11.0)
[2021-02-26] MEDS ORDERED: CefTRIAXone 2gm/D5W 50ml BAG 50 ML IV ONE (13:20)
[2021-02-26] MEDS ORDERED: normal saline 1000ML IV soln IV ONE (13:20)
[2021-02-26 13:29] LABS: ALANINE AMINOTRANSFERASE 19 U/L (12-78); ALBUMIN 2.8 G/DL (3.4-5.0); ALBUMIN/GLOBULIN RATIO 0.7 (1.1-1.5); ALKALINE PHOSPHATASE 49 IU/L (46-116); ANION GAP 8 (8-16); ASPARTATE AMINO TRANSFERASE 24 U/L (10-37); BILIRUBIN,TOTAL 0.4 MG/DL (0.1-1.0); BLOOD UREA NITROGEN 12 MG/DL (7-18); CALCIUM 8.5 MG/DL (8.5-10.1); CHLORIDE 104 MMOL/L (99-107); GLUCOSE 149 MG/DL (70-104); POTASSIUM 3.8 MMOL/L (3.5-5.1); SODIUM 141 MMOL/L (135-145); TOTAL CARBON DIOXIDE 28.8 MMOL/L (24-32); TOTAL PROTEIN 6.9 G/DL (6.4-8.2); eGFR 53 ML/MIN
[2021-02-26 13:37] LABS: MAGNESIUM 1.8 MG/DL (1.5-2.4)
--- NOTE | 2021-02-26 14:30 | NUR ---
PT TO RECEIVE TOTAL OF 3L NS IV FLUID BOLUS PER VO ESPINOZA REED
[2021-02-26 15:13] LABS: CLARITY,URINE TURBID (Clear); COLOR,URINE YELLOW (Yellow); GLUCOSE, URINE NEGATIVE (Neg); KETONES,URINE TRACE mg/dl (Neg); LEUKOCYTE ESTERASE ,URINE MODERATE (Neg); NITRITES, URINE NEGATIVE (Neg); OCCULT BLOOD,URINE SMALL (Neg); PROTEIN,URINE 100 mg/dl (Neg)
[2021-02-26 15:19] LABS: UA COLLECTION TYPE OTHER
[2021-02-26 15:29] LABS: BACTERIA,URINE 1+ /HPF (Neg); MUCUS STRANDS FEW /LPF (Neg); SQUAMOUS EPITHELIAL CELL,UR MANY /LPF (FEW); TRANSITIONAL EPI CELLS,URINE FEW /HPF; WBC,URINE 30-50 /HPF (0-4)
[2021-02-26] MEDS ORDERED: REMDESIVIR INJ 200 MG in normal saline 100ml IV soln 100 ML IV ONE (15:40)
[2021-02-26] MEDS ORDERED: PANT-47 PO (15:45)
[2021-02-26] MEDS ORDERED: CALC500T63 PO (15:45)
[2021-02-26] MEDS ORDERED: REMDESIVIR INJ 200 MG in normal saline 100ml IV soln 60 ML IV ONE (15:55)
[2021-02-26] MEDS ORDERED: ondansetron/PF 4mg/2ml inj IV PRN (16:45)
[2021-02-26] MEDS ORDERED: potassium Cl 40MEQ/1/2NS 520ml 520 ML IV PRN ×2 (16:45)
[2021-02-26] MEDS ORDERED: magnesium 4gm in 100ml NS 100 ML IV PRN (16:45)
[2021-02-26] MEDS ORDERED: magnesium Cl slow-release 64mg tablet PO PRN (16:45)
[2021-02-26] MEDS ORDERED: potassium Cl 20 mEq SR tablet PO PRN ×2 (16:45)
[2021-02-26] MEDS ORDERED: magnesium 2GM in 50ml NS 50 ML IV PRN (16:45)
[2021-02-26] MEDS ORDERED: acetaminophen 325mg tablet PO PRN (16:45)
[2021-02-26] MEDS ORDERED: non-formulary drug (Alendronate Sodium* (Fosamax*) 1 TAB) PO SCH (16:55)
[2021-02-26] MEDS: normal saline 1000ml 1,000 ML IV SCH (16:59)
[2021-02-26] MEDS: K and/or MAG REPLACEMENT MC SCH (20:00)
[2021-02-26] MEDS ORDERED: docusate sod 100mg capsule PO SCH (20:00)
[2021-02-26] MEDS: sennosides 8.6mg tablet PO SCH (20:55)
[2021-02-26] MEDS: aspirin 325mg tablet PO SCH (20:55)
[2021-02-26] MEDS: gabapentin 300mg capsule PO SCH (20:56)
[2021-02-26] MEDS: atorvastatin 10mg tablet PO SCH (20:56)
[2021-02-26] MEDS: clopidogrel 75mg tablet PO SCH (20:56)
[2021-02-26] MEDS: docusate sod 100mg capsule PO SCH (20:56)
--- NOTE | 2021-02-26 23:23 | NUR ---
Pt provided 2 new warm blankets per her request. Pt + productive cough. VSS. SaO2 94% on 6L n/c.
[2021-02-27 03:43] LABS: BASOPHILS % (AUTO) 0.5 % (0-1); EOSINOPHILS % (AUTO) 0 % (0-6); HEMATOCRIT 32.2 % (35.0-45.0); HEMOGLOBIN 10.5 g/dl (12.0-16.0); LYMPHOCYTES # (AUTO) 0.8 X10'3 (1.1-4.8); LYMPHOCYTES % (AUTO) 9.7 % (21-51); MEAN CORPUSCULAR HGB CONC 32.5 g/dL (33.0-36.5); MEAN PLATELET VOLUME 7.2 FL (7.4-10.4); MONOCYTES # (AUTO) 0.7 X10'3 (0-0.9); MONOCYTES % (AUTO) 8.9 % (2-12); NEUTROPHILS # (AUTO) 6.7 X10'3 (1.8-7.7); NEUTROPHILS % (AUTO) 80.9 % (42-75); PLATELET COUNT 292 X10'3 (140-440); RED BLOOD COUNT 4.02 X10'6 (4.20-5.60); RED CELL DISTRIBUTION WIDTH 14.6 % (11.5-14.5); WHITE BLOOD COUNT 8.3 X10'3 (4.5-11.0)
[2021-02-27 03:59] LABS: ALBUMIN 2.3 G/DL (3.4-5.0); ANION GAP 7 (8-16); BLOOD UREA NITROGEN 10 MG/DL (7-18); BUN/CREATININE RATIO 11.4 (6.6-38.0); CALCIUM 7.6 MG/DL (8.5-10.1); CHLORIDE 108 MMOL/L (99-107); CREATININE 0.88 MG/DL (0.40-0.90); GLUCOSE 113 MG/DL (70-104); MAGNESIUM 1.7 MG/DL (1.5-2.4); SODIUM 143 MMOL/L (135-145); TOTAL CARBON DIOXIDE 28.2 MMOL/L (24-32); eGFR 61 ML/MIN
--- NOTE | 2021-02-27 06:10 | NUR ---
Pt up to bedside commode. Every time pt gets out of bed, her sats drop to less than 82%. Pt also takes off nasal cannula as she's sitting on the commode. Pt placed on NRB at 10L for 5 minutes d/t decreased O2 sat (88%). Once patient's sats increased to 95%, nc placed at 6L again. Pt now maintaining at 91%. ER aware
[2021-02-27] MEDS ORDERED: niacin 250mg tablet PO SCH (08:00)
[2021-02-27] MEDS: K and/or MAG REPLACEMENT MC SCH ×2 (08:00→20:00)
[2021-02-27] MEDS: OMEGA-3/DHA/EPA/FISH OIL 1 EACH CAPSULE.DR PO SCH (08:15)
[2021-02-27] MEDS: magnesium hydroxide 30ml (MOM) UD suspension PO SCH (08:15)
[2021-02-27] MEDS: sennosides 8.6mg tablet PO SCH ×2 (08:15→20:00)
[2021-02-27] MEDS: docusate sod 100mg capsule PO SCH ×3 (08:16→20:06)
[2021-02-27] MEDS: ascorbic acid 500mg tablet PO SCH (08:16)
[2021-02-27] MEDS: gabapentin 300mg capsule PO SCH ×3 (08:16→21:06)
[2021-02-27] MEDS: pantoprazole 40mg Tablet.DR PO SCH (08:16)
[2021-02-27] MEDS: enoxaparin 40mg/0.4ml syringe SUBCUT SCH (08:17)
[2021-02-27] MEDS: calcium carbonate 500mg tablet PO SCH (08:40)
[2021-02-27] MEDS: REMDESIVIR 100 MG in NS 100ml IVPB IV SCH (08:41)
--- NOTE | 2021-02-27 08:52 | NUR ---
PATIENT UP TO BSC WITH ASSISTANCE. PATIENT SATS 84-85% ON 7LPM/NC WHEN GETTING UP. FREQUENT HARSH, CONGESTED COUGH NOTED. O2 SATS WENT UP TO 91% AFTER GETTING BACK ON GURNEY AND RESTING WITH O2 INTACT.
--- NOTE | 2021-02-27 11:01 | NUR ---
TC FROM DAUGHTER, FANNY, FOR CONDITION REPORT.
[2021-02-27] MEDS: dexamethasone inj 6 MG in normal saline 50ml IV soln 50 ML IV SCH ×2 (13:43→20:00)
[2021-02-27] MEDS: aspirin 325mg tablet PO SCH (21:06)
[2021-02-27] MEDS: atorvastatin 10mg tablet PO SCH (21:06)
[2021-02-27] MEDS: clopidogrel 75mg tablet PO SCH (21:07)
[2021-02-28 02:11] LABS: BASOPHILS % (AUTO) 0.2 % (0-1); EOSINOPHILS % (AUTO) 0 % (0-6); HEMATOCRIT 33.3 % (35.0-45.0); HEMOGLOBIN 10.7 g/dl (12.0-16.0); LYMPHOCYTES # (AUTO) 0.5 X10'3 (1.1-4.8); MEAN CORPUSCULAR HEMOGLOBIN 25.6 PG (27.0-31.0); MEAN CORPUSCULAR VOLUME 79.8 FL (78-98); MEAN PLATELET VOLUME 6.9 FL (7.4-10.4); MONOCYTES # (AUTO) 0.6 X10'3 (0-0.9); MONOCYTES % (AUTO) 9.1 % (2-12); NEUTROPHILS # (AUTO) 5.2 X10'3 (1.8-7.7); NEUTROPHILS % (AUTO) 82.7 % (42-75); PLATELET COUNT 365 X10'3 (140-440); RED BLOOD COUNT 4.18 X10'6 (4.20-5.60); RED CELL DISTRIBUTION WIDTH 14.7 % (11.5-14.5); WHITE BLOOD COUNT 6.3 X10'3 (4.5-11.0)
[2021-02-28 02:25] LABS: D-DIMER 2.01 MG/L FEU (0-0.50)
[2021-02-28 02:30] LABS: ALBUMIN 2.3 G/DL (3.4-5.0); ANION GAP 11 (8-16); BLOOD UREA NITROGEN 14 MG/DL (7-18); BUN/CREATININE RATIO 18.7 (6.6-38.0); C-REACTIVE PROTEIN 15.26 MG/DL (0.0-0.5); CALCIUM 7.9 MG/DL (8.5-10.1); CHLORIDE 108 MMOL/L (99-107); CREATININE 0.75 MG/DL (0.40-0.90); GLUCOSE 180 MG/DL (70-104); MAGNESIUM 2.2 MG/DL (1.5-2.4); POTASSIUM 4.3 MMOL/L (3.5-5.1); SODIUM 143 MMOL/L (135-145); TOTAL CARBON DIOXIDE 24.4 MMOL/L (24-32); eGFR 74 ML/MIN
[2021-02-28] MEDS: magnesium hydroxide 30ml (MOM) UD suspension PO SCH (07:42)
[2021-02-28] MEDS: dexamethasone inj 6 MG in normal saline 50ml IV soln 50 ML IV SCH ×2 (07:42→20:46)
[2021-02-28] MEDS: pantoprazole 40mg Tablet.DR PO SCH (07:43)
[2021-02-28] MEDS: OMEGA-3/DHA/EPA/FISH OIL 1 EACH CAPSULE.DR PO SCH (07:43)
[2021-02-28] MEDS: gabapentin 300mg capsule PO SCH ×3 (07:43→20:47)
[2021-02-28] MEDS: ascorbic acid 500mg tablet PO SCH (07:43)
[2021-02-28] MEDS: enoxaparin 40mg/0.4ml syringe SUBCUT SCH ×2 (07:44→20:47)
[2021-02-28] MEDS: calcium carbonate 500mg tablet PO SCH (07:44)
[2021-02-28] MEDS: docusate sod 100mg capsule PO SCH ×3 (07:50→20:48)
[2021-02-28] MEDS: sennosides 8.6mg tablet PO SCH ×2 (07:51→20:00)
[2021-02-28] MEDS: K and/or MAG REPLACEMENT MC SCH ×2 (07:56→20:00)
--- NOTE | 2021-02-28 07:59 | NUR ---
coughing at this time,saturation 84%-90% when coughing,will start on o2 mask and increased oxygen to 9 L.will monitor.
--- NOTE | 2021-02-28 08:06 | NUR ---
placed on a non rebreather at 10L.we will continue to montor.
--- NOTE | 2021-02-28 08:11 | NUR ---
now sating 94%.
--- NOTE | 2021-02-28 09:15 | NUR ---
paged Dr. Stephens requesting inhaler for wheezing.
[2021-02-28] MEDS: REMDESIVIR 100 MG in NS 100ml IVPB IV SCH (09:24)
--- NOTE | 2021-02-28 09:35 | NUR ---
on nc while eating.
--- NOTE | 2021-02-28 09:35 | NUR ---
breakfast tray and warm blanket given,placed pt on nc 9 L sating 95%.
[2021-02-28 11:00] VITALS: BP 125/64
--- NOTE | 2021-02-28 11:06 | NUR ---
rita Ruelas RN not available at this time,will attempt again later.
[2021-02-28] MEDS: normal saline 1000ml 1,000 ML IV SCH (17:35)
--- NOTE | 2021-02-28 17:58 | NUR ---
PAGER ID: [phone] MESSAGE: Octavia Garcia 7B PT. AIC 6.8 DO YOU WANT ANY DIABETIC PROTOCOL? ALSO URINE VERY MJ. INCREASE FLUIDS? LASHONDA [id number]
--- NOTE | 2021-02-28 18:24 | NUR ---
PAGER ID: [phone] MESSAGE: Octavia Garcia 07B COVID UNIT BG 227. iNSULIN? hYPER/HYPOGLYCEMIC PROTOCOL?? Ian [phone]
--- NOTE | 2021-02-28 18:27 | NUR ---
gAVE REPORT TO Kristin Sandoval
--- NOTE | 2021-02-28 18:46 | NUR ---
I have received report from KARISSA Juarez and had the opportunity to ask questions and assume patient care.
[2021-02-28] MEDS ORDERED: MESSAGE TO PHARMACY PO ONE (18:55)
[2021-02-28] MEDS ORDERED: dextrose 50%-water 50ml dispensing syringe IV PRN ×2 (18:55)
[2021-02-28] MEDS ORDERED: glucagon, human recombinant 1mg kit SUBCUT PRN (18:55)
[2021-02-28] MEDS ORDERED: dextrose ORAL solution 15 GM/59 ML bottle PO PRN ×2 (18:55)
[2021-02-28 19:00] VITALS: BP 124/71
[2021-02-28] MEDS: guaiFENesin/codeine phos 10ml UD oral syrup PO PRN (19:19)
[2021-02-28] MEDS: insulin Lispro (HumaLOG) vial - multi-dose SQ SCH (20:03)
[2021-02-28] MEDS: atorvastatin 10mg tablet PO SCH (20:47)
[2021-02-28] MEDS: clopidogrel 75mg tablet PO SCH (20:47)
[2021-02-28] MEDS: aspirin 325mg tablet PO SCH (20:47)
[2021-02-28] MEDS: insulin glargine (Lantus) pen - multi-dose SQ SCH (21:51)
[2021-02-28 23:00] VITALS: BP 129/70
[2021-03-01] MEDS: guaiFENesin/codeine phos 10ml UD oral syrup PO PRN ×5 (00:08→22:55)
[2021-03-01 04:00] VITALS: BP 109/56
--- NOTE | 2021-03-01 06:58 | NUR ---
Problems reprioritized. Patient report given, questions answered & plan of care reviewed with KARISSA Gray.
[2021-03-01 07:13] LABS: BASOPHILS % (AUTO) 0.2 % (0-1); EOSINOPHILS % (AUTO) 0 % (0-6); HEMATOCRIT 32.1 % (35.0-45.0); HEMOGLOBIN 10.8 g/dl (12.0-16.0); LYMPHOCYTES # (AUTO) 0.5 X10'3 (1.1-4.8); LYMPHOCYTES % (AUTO) 6.2 % (21-51); MEAN CORPUSCULAR HEMOGLOBIN 26.4 PG (27.0-31.0); MEAN CORPUSCULAR HGB CONC 33.8 g/dL (33.0-36.5); MEAN CORPUSCULAR VOLUME 78.2 FL (78-98); MEAN PLATELET VOLUME 7.1 FL (7.4-10.4); MONOCYTES # (AUTO) 0.6 X10'3 (0-0.9); NEUTROPHILS # (AUTO) 6.8 X10'3 (1.8-7.7); NEUTROPHILS % (AUTO) 85.6 % (42-75); PLATELET COUNT 469 X10'3 (140-440); RED CELL DISTRIBUTION WIDTH 14.7 % (11.5-14.5)
[2021-03-01 07:21] LABS: ALBUMIN 2.3 G/DL (3.4-5.0); ANION GAP 8 (8-16); BLOOD UREA NITROGEN 21 MG/DL (7-18); BUN/CREATININE RATIO 26.9 (6.6-38.0); C-REACTIVE PROTEIN 6.07 MG/DL (0.0-0.5); CALCIUM 7.9 MG/DL (8.5-10.1); CHLORIDE 109 MMOL/L (99-107); CREATININE 0.78 MG/DL (0.40-0.90); GLUCOSE 174 MG/DL (70-104); MAGNESIUM 2.2 MG/DL (1.5-2.4); POTASSIUM 4.4 MMOL/L (3.5-5.1); SODIUM 143 MMOL/L (135-145); TOTAL CARBON DIOXIDE 26.3 MMOL/L (24-32); eGFR 70 ML/MIN
[2021-03-01 07:22] LABS: D-DIMER 1.52 MG/L FEU (0-0.50)
[2021-03-01] MEDS: K and/or MAG REPLACEMENT MC SCH ×2 (08:00→20:00)
[2021-03-01] MEDS: magnesium hydroxide 30ml (MOM) UD suspension PO SCH (08:00)
[2021-03-01] MEDS: OMEGA-3/DHA/EPA/FISH OIL 1 EACH CAPSULE.DR PO SCH (08:23)
[2021-03-01] MEDS: pantoprazole 40mg Tablet.DR PO SCH (08:23)
[2021-03-01] MEDS: ascorbic acid 500mg tablet PO SCH (08:23)
[2021-03-01] MEDS: calcium carbonate 500mg tablet PO SCH (08:23)
[2021-03-01] MEDS: gabapentin 300mg capsule PO SCH ×3 (08:23→21:29)
[2021-03-01] MEDS: docusate sod 100mg capsule PO SCH ×3 (08:24→21:30)
[2021-03-01] MEDS: enoxaparin 40mg/0.4ml syringe SUBCUT SCH ×2 (08:26→21:29)
[2021-03-01] MEDS: sennosides 8.6mg tablet PO SCH ×2 (08:26→21:29)
[2021-03-01] MEDS: dexamethasone inj 6 MG in normal saline 50ml IV soln 50 ML IV SCH ×2 (08:36→21:28)
[2021-03-01] MEDS: insulin Lispro (HumaLOG) vial - multi-dose SQ SCH ×3 (08:57→20:29)
[2021-03-01] MEDS: REMDESIVIR 100 MG in NS 100ml IVPB IV SCH (08:59)
[2021-03-01 11:00] VITALS: BP 109/55
[2021-03-01 15:00] VITALS: BP 103/60
[2021-03-01 18:05] VITALS: BP 113/59
--- NOTE | 2021-03-01 18:09 | NUR ---
patient continues on o2 via high flow at 15L. o2 sats 87-94%. up using BSC with assistance of one person. No BM at this time. Blood sugars 157,137,229 is now level 3. will continue to monitor.
[2021-03-01 19:00] VITALS: BP 116/64
--- NOTE | 2021-03-01 19:07 | NUR ---
Problems reprioritized. Patient report given, questions answered & plan of care reviewed with Radha HANCOCK.
[2021-03-01] MEDS: clopidogrel 75mg tablet PO SCH (21:30)
[2021-03-01] MEDS: aspirin 325mg tablet PO SCH (21:30)
[2021-03-01] MEDS: atorvastatin 10mg tablet PO SCH (21:30)
[2021-03-01] MEDS: insulin glargine (Lantus) pen - multi-dose SQ SCH (22:55)
[2021-03-01 23:00] VITALS: BP 117/58
[2021-03-02 03:00] VITALS: BP 117/58
[2021-03-02] MEDS: guaiFENesin/codeine phos 10ml UD oral syrup PO PRN ×3 (03:22→19:56)
[2021-03-02 06:00] VITALS: BP 130/70
--- NOTE | 2021-03-02 06:20 | NUR ---
Patient in room COVID 07. I have received report from jason snider and had the opportunity to ask questions and assume patient care.
[2021-03-02 07:52] LABS: BASOPHILS # (AUTO) 0.1 X10'3 (0-0.2); EOSINOPHILS % (AUTO) 0 % (0-6); HEMATOCRIT 31.9 % (35.0-45.0); HEMOGLOBIN 10.7 g/dl (12.0-16.0); LYMPHOCYTES # (AUTO) 0.6 X10'3 (1.1-4.8); LYMPHOCYTES % (AUTO) 7.7 % (21-51); MEAN CORPUSCULAR HEMOGLOBIN 26.2 PG (27.0-31.0); MEAN CORPUSCULAR HGB CONC 33.5 g/dL (33.0-36.5); MEAN CORPUSCULAR VOLUME 78.3 FL (78-98); MEAN PLATELET VOLUME 7.1 FL (7.4-10.4); MONOCYTES # (AUTO) 0.5 X10'3 (0-0.9); MONOCYTES % (AUTO) 7.2 % (2-12); NEUTROPHILS # (AUTO) 6.3 X10'3 (1.8-7.7); NEUTROPHILS % (AUTO) 84.1 % (42-75); PLATELET COUNT 480 X10'3 (140-440); RED BLOOD COUNT 4.08 X10'6 (4.20-5.60); RED CELL DISTRIBUTION WIDTH 14.9 % (11.5-14.5); WHITE BLOOD COUNT 7.5 X10'3 (4.5-11.0)
[2021-03-02 07:57] LABS: D-DIMER 1.53 MG/L FEU (0-0.50)
[2021-03-02] MEDS: K and/or MAG REPLACEMENT MC SCH ×2 (08:00→19:50)
[2021-03-02] MEDS: sennosides 8.6mg tablet PO SCH ×2 (08:00→19:48)
[2021-03-02] MEDS: docusate sod 100mg capsule PO SCH ×3 (08:00→19:48)
[2021-03-02 08:18] LABS: ALBUMIN 2.2 G/DL (3.4-5.0); ANION GAP 8 (8-16); BLOOD UREA NITROGEN 18 MG/DL (7-18); BUN/CREATININE RATIO 25.4 (6.6-38.0); C-REACTIVE PROTEIN 2.96 MG/DL (0.0-0.5); CALCIUM 7.4 MG/DL (8.5-10.1); CHLORIDE 112 MMOL/L (99-107); CREATININE 0.71 MG/DL (0.40-0.90); GLUCOSE 163 MG/DL (70-104); MAGNESIUM 2.1 MG/DL (1.5-2.4); POTASSIUM 4.1 MMOL/L (3.5-5.1); SODIUM 145 MMOL/L (135-145); TOTAL CARBON DIOXIDE 24.7 MMOL/L (24-32); eGFR 78 ML/MIN
[2021-03-02] MEDS: dexamethasone inj 6 MG in normal saline 50ml IV soln 50 ML IV SCH ×2 (09:38→19:48)
[2021-03-02] MEDS: gabapentin 300mg capsule PO SCH ×3 (09:42→19:49)
[2021-03-02] MEDS: calcium carbonate 500mg tablet PO SCH (09:42)
[2021-03-02] MEDS: enoxaparin 40mg/0.4ml syringe SUBCUT SCH ×2 (09:42→19:49)
[2021-03-02] MEDS: pantoprazole 40mg Tablet.DR PO SCH (09:43)
[2021-03-02] MEDS: OMEGA-3/DHA/EPA/FISH OIL 1 EACH CAPSULE.DR PO SCH (09:43)
[2021-03-02] MEDS: ascorbic acid 500mg tablet PO SCH (09:43)
[2021-03-02] MEDS: REMDESIVIR 100 MG in NS 100ml IVPB IV SCH (09:44)
[2021-03-02] MEDS: magnesium hydroxide 30ml (MOM) UD suspension PO SCH (09:44)
[2021-03-02 11:00] VITALS: BP 120/67
[2021-03-02 14:00] VITALS: BP 144/69
[2021-03-02] MEDS: normal saline 1000ml 1,000 ML IV SCH (16:45)
--- NOTE | 2021-03-02 18:00 | NUR ---
Patient in room COVID 07. I have received report from karel gomez and had the opportunity to ask questions and assume patient care.
--- NOTE | 2021-03-02 18:56 | NUR ---
Problems reprioritized. Patient report given, questions answered & plan of care reviewed with jason helm.
[2021-03-02] MEDS: aspirin 325mg tablet PO SCH (19:49)
[2021-03-02] MEDS: atorvastatin 10mg tablet PO SCH (19:49)
[2021-03-02] MEDS: clopidogrel 75mg tablet PO SCH (19:50)
[2021-03-02] MEDS: insulin glargine (Lantus) pen - multi-dose SQ SCH (21:51)
[2021-03-03 06:00] VITALS: BP 123/59
--- NOTE | 2021-03-03 06:25 | NUR ---
Patient in room COVID 07. I have received report from KARISSA JACKSON and had the opportunity to ask questions and assume patient care.
[2021-03-03 07:49] LABS: BASOPHILS % (AUTO) 0.5 % (0-1); EOSINOPHILS % (AUTO) 0 % (0-6); HEMATOCRIT 33.8 % (35.0-45.0); LYMPHOCYTES # (AUTO) 0.7 X10'3 (1.1-4.8); LYMPHOCYTES % (AUTO) 9.8 % (21-51); MEAN CORPUSCULAR HGB CONC 32.5 g/dL (33.0-36.5); MEAN CORPUSCULAR VOLUME 80.1 FL (78-98); MONOCYTES # (AUTO) 0.7 X10'3 (0-0.9); MONOCYTES % (AUTO) 9.3 % (2-12); NEUTROPHILS # (AUTO) 5.8 X10'3 (1.8-7.7); NEUTROPHILS % (AUTO) 80.4 % (42-75); PLATELET COUNT 476 X10'3 (140-440); RED BLOOD COUNT 4.22 X10'6 (4.20-5.60); RED CELL DISTRIBUTION WIDTH 15.1 % (11.5-14.5); WHITE BLOOD COUNT 7.2 X10'3 (4.5-11.0)
[2021-03-03] MEDS: magnesium hydroxide 30ml (MOM) UD suspension PO SCH (08:00)
[2021-03-03] MEDS: K and/or MAG REPLACEMENT MC SCH ×2 (08:00→20:00)
[2021-03-03 08:04] LABS: ALBUMIN 2.2 G/DL (3.4-5.0); ANION GAP 7 (8-16); BLOOD UREA NITROGEN 13 MG/DL (7-18); C-REACTIVE PROTEIN 1.67 MG/DL (0.0-0.5); CALCIUM 7.5 MG/DL (8.5-10.1); CHLORIDE 109 MMOL/L (99-107); CREATININE 0.65 MG/DL (0.40-0.90); D-DIMER 1.43 MG/L FEU (0-0.50); GLUCOSE 128 MG/DL (70-104); MAGNESIUM 2.1 MG/DL (1.5-2.4); POTASSIUM 4.2 MMOL/L (3.5-5.1); SODIUM 141 MMOL/L (135-145); TOTAL CARBON DIOXIDE 24.8 MMOL/L (24-32); eGFR 87 ML/MIN
[2021-03-03] MEDS: dexamethasone inj 6 MG in normal saline 50ml IV soln 50 ML IV SCH ×2 (08:39→23:06)
[2021-03-03] MEDS: enoxaparin 40mg/0.4ml syringe SUBCUT SCH ×2 (08:39→21:14)
[2021-03-03] MEDS: sennosides 8.6mg tablet PO SCH ×2 (08:40→21:14)
[2021-03-03] MEDS: gabapentin 300mg capsule PO SCH ×3 (08:40→21:15)
[2021-03-03] MEDS: ascorbic acid 500mg tablet PO SCH (08:40)
[2021-03-03] MEDS: docusate sod 100mg capsule PO SCH ×3 (08:40→21:00)
[2021-03-03] MEDS: pantoprazole 40mg Tablet.DR PO SCH (08:41)
[2021-03-03] MEDS: OMEGA-3/DHA/EPA/FISH OIL 1 EACH CAPSULE.DR PO SCH (08:41)
[2021-03-03] MEDS: calcium carbonate 500mg tablet PO SCH (08:41)
[2021-03-03 11:00] VITALS: BP 112/65
--- NOTE | 2021-03-03 11:18 | NUR ---
Initial: Pt admitted w/ +Covid experiencing increased confusion and diarrhea. Pt able to eat moderately well on CCHO diet able to feed self. Avg intake 69% of meals which meets 77% of est energy needs and 71% of est protein needs. No N/V/D noted, LBM 02/28. No nutritional diagnosis at this time, will continue to monitor. Recs: 1. Continue CCHO/Mechanical soft diet as tolerated 2. Bowel care per rx 3. Weekly wts Addendum: 03/03/21 at [address] Amended: Links added.
[2021-03-03 12:40] LABS: HEMOGLOBIN A1C 7.5 % (4.5-6.2)
[2021-03-03] MEDS: guaiFENesin/codeine phos 10ml UD oral syrup PO PRN ×2 (13:46→23:55)
[2021-03-03 14:00] VITALS: BP 143/72
--- NOTE | 2021-03-03 15:24 | NUR ---
Nutrition consult: Received consult stating that pt needs a soft diet and that she is not able to eat. Pt currently on Soft to chew foods and documented to be eating avg 69% x 8 meals. Discussed w/ RN about texture modification. Will continue to follow. Recommend: Soft to chew/chop all CCHO diet Addendum: 03/03/21 at [address] Amended: Links added.
--- NOTE | 2021-03-03 18:38 | NUR ---
Problems reprioritized. Patient report given, questions answered & plan of care reviewed with jason helm.
--- NOTE | 2021-03-03 18:45 | NUR ---
Patient in room COVID 07. I have received report from Tracie HANCOCK and had the opportunity to ask questions and assume patient care.
[2021-03-03 19:00] VITALS: BP 141/59
[2021-03-03] MEDS: insulin Lispro (HumaLOG) vial - multi-dose SQ SCH (19:12)
[2021-03-03] MEDS: aspirin 325mg tablet PO SCH (21:14)
[2021-03-03] MEDS: clopidogrel 75mg tablet PO SCH (21:15)
[2021-03-03] MEDS: atorvastatin 10mg tablet PO SCH (21:15)
[2021-03-03] MEDS: insulin glargine (Lantus) pen - multi-dose SQ SCH (22:50)
[2021-03-04] VITALS: BP 124/67
[2021-03-04 05:00] VITALS: BP 115/65
--- NOTE | 2021-03-04 06:15 | NUR ---
Problems reprioritized. Patient report given, questions answered & plan of care reviewed with Sujit HANCOCK.
[2021-03-04] MEDS: K and/or MAG REPLACEMENT MC SCH ×2 (08:00→20:00)
[2021-03-04] MEDS: sennosides 8.6mg tablet PO SCH ×2 (08:00→20:07)
[2021-03-04 08:49] LABS: C-REACTIVE PROTEIN 1.48 MG/DL (0.0-0.5); D-DIMER 1.33 MG/L FEU (0-0.50); MAGNESIUM 1.8 MG/DL (1.5-2.4)
[2021-03-04 11:00] VITALS: BP 110/56
[2021-03-04] MEDS: magnesium hydroxide 30ml (MOM) UD suspension PO SCH (11:10)
[2021-03-04] MEDS: enoxaparin 40mg/0.4ml syringe SUBCUT SCH ×2 (11:10→20:08)
[2021-03-04] MEDS: dexamethasone inj 6 MG in normal saline 50ml IV soln 50 ML IV SCH ×2 (11:10→20:08)
[2021-03-04] MEDS: OMEGA-3/DHA/EPA/FISH OIL 1 EACH CAPSULE.DR PO SCH (11:10)
[2021-03-04] MEDS: calcium carbonate 500mg tablet PO SCH (11:11)
[2021-03-04] MEDS: pantoprazole 40mg Tablet.DR PO SCH (11:11)
[2021-03-04] MEDS: docusate sod 100mg capsule PO SCH ×3 (11:11→20:06)
[2021-03-04] MEDS: gabapentin 300mg capsule PO SCH ×3 (11:11→20:07)
[2021-03-04] MEDS: ascorbic acid 500mg tablet PO SCH (11:13)
--- NOTE | 2021-03-04 13:59 | NUR ---
DM Consult: Pt A1C 7.5 appropriate given age and on steroids for 5 consecutive days prior to A1C draw 03/03; no need for DM ed at this time. Addendum: 03/04/21 at [address] Amended: Links added.
[2021-03-04] MEDS: insulin Lispro (HumaLOG) vial - multi-dose SQ SCH ×2 (14:00→20:14)
[2021-03-04 15:00] VITALS: BP 144/67
[2021-03-04] MEDS: normal saline 1000ml 1,000 ML IV SCH (16:53)
--- NOTE | 2021-03-04 19:06 | NUR ---
Patient in room COVID 07. I have received report from Mikel HANCOCK and had the opportunity to ask questions and assume patient care.
[2021-03-04 20:00] VITALS: BP 140/70
[2021-03-04] MEDS: aspirin 325mg tablet PO SCH (20:06)
[2021-03-04] MEDS: atorvastatin 10mg tablet PO SCH (20:07)
[2021-03-04] MEDS: clopidogrel 75mg tablet PO SCH (20:07)
[2021-03-04] MEDS: insulin glargine (Lantus) pen - multi-dose SQ SCH (21:43)
[2021-03-04] MEDS: guaiFENesin/codeine phos 10ml UD oral syrup PO PRN (23:56)
[2021-03-05] VITALS: BP 138/68
--- NOTE | 2021-03-05 06:43 | NUR ---
Problems reprioritized. Patient report given, questions answered & plan of care reviewed with Berta HANCOCK.
[2021-03-05 07:00] VITALS: BP 132/48
[2021-03-05] MEDS: K and/or MAG REPLACEMENT MC SCH (08:00)
[2021-03-05 08:06] LABS: C-REACTIVE PROTEIN 0.85 MG/DL (0.0-0.5); MAGNESIUM 1.9 MG/DL (1.5-2.4)
[2021-03-05 08:08] LABS: D-DIMER 1.24 MG/L FEU (0-0.50)
[2021-03-05] MEDS: docusate sod 100mg capsule PO SCH ×2 (10:01→13:00)
[2021-03-05] MEDS: gabapentin 300mg capsule PO SCH ×2 (10:01→14:02)
[2021-03-05] MEDS: calcium carbonate 500mg tablet PO SCH (10:02)
[2021-03-05] MEDS: ascorbic acid 500mg tablet PO SCH (10:02)
[2021-03-05] MEDS: pantoprazole 40mg Tablet.DR PO SCH (10:02)
[2021-03-05] MEDS: sennosides 8.6mg tablet PO SCH (10:02)
[2021-03-05] MEDS: magnesium hydroxide 30ml (MOM) UD suspension PO SCH (10:02)
[2021-03-05] MEDS: OMEGA-3/DHA/EPA/FISH OIL 1 EACH CAPSULE.DR PO SCH (10:03)
[2021-03-05] MEDS: dexamethasone inj 6 MG in normal saline 50ml IV soln 50 ML IV SCH (10:03)
[2021-03-05] MEDS: enoxaparin 40mg/0.4ml syringe SUBCUT SCH (10:04)
[2021-03-05] MEDS: insulin Lispro (HumaLOG) vial - multi-dose SQ SCH (10:24)
[2021-03-05] MEDS ORDERED: DEC4T PO ×2 (10:51)
[2021-03-05] MEDS ORDERED: APIX5TAB3 PO ×2 (10:51)
[2021-03-05 11:00] VITALS: BP 145/62
--- NOTE | 2021-03-05 12:45 | NUR ---
O2 Sat at rest on room air:_82__% If below 89%: Recovery O2 Sat at rest on _4__LPM:___%:_94__% via NC (mask/nasal cannula, etc..) No further documentation is necessary. If O2 Sat did not drop below 89% on room air,ambulate patient on room air. O2 Sat while ambulating on room air:___% Recovery O2 Sat while ambulating on ___LPM:___% No further documentation is necessary. If patient does not drop below 89% while ambulating, he/she does not qualify for home O2.
--- NOTE | 2021-03-05 18:30 | NUR ---
Patient in room COVID 07. I have received report from BULMARO HANCOCK and had the opportunity to ask questions and assume patient care. 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
--- NOTE | 2021-03-05 19:20 | NUR ---
PATIENT LEFT FOR DISCHARGE HOME WITH DAUGHTER FANNY IN A WHEELCHAIR WITH STAFF TO THE FRONT DOOR.
[2021-03-05] MEDS ORDERED: dexamethasone inj 4 MG in normal saline 50ml IV soln 50 ML IV SCH (20:00)
== END 2021-03-05 19:20 | disposition home health service (06) | DRG 177 ==
LOC: ER 12:18 → ED HOLD 16:47 → COVID IP 02-28 12:12
PROVIDERS: ADMIT Internal Medicine; ATTEND Internal Medicine
PROC: XW033E5 Introduction of Remdesivir Anti-infective into Peripheral Vein, Percutaneous Approach, New Technology Group 5 (ICD-10-PCS; principal; 2021-02-26)
PROC: 5A0955A Assistance with Respiratory Ventilation, Greater than 96 Consecutive Hours, High Flow/Velocity Cannula (ICD-10-PCS; 2021-03-01)
DX: U07.1 COVID-19 (principal); J96.01 Acute respiratory failure with hypoxia; E43 Unspecified severe protein-calorie malnutrition; J12.82 Pneumonia due to coronavirus disease 2019; N17.9 Acute kidney failure, unspecified; E78.5 Hyperlipidemia, unspecified; M81.0 Age-related osteoporosis without current pathological fracture; E66.9 Obesity, unspecified; G89.29 Other chronic pain; K21.9 Gastro-esophageal reflux disease without esophagitis; K59.09 Other constipation; M54.9 Dorsalgia, unspecified; I95.9 Hypotension, unspecified; I25.10 Atherosclerotic heart disease of native coronary artery without angina pectoris; E11.42 Type 2 diabetes mellitus with diabetic polyneuropathy; J45.909 Unspecified asthma, uncomplicated; E86.0 Dehydration; Z68.29 Body mass index [BMI] 29.0-29.9, adult; Z79.01 Long term (current) use of anticoagulants; Z79.02 Long term (current) use of antithrombotics/antiplatelets; Z79.899 Other long term (current) drug therapy; Z80.0 Family history of malignant neoplasm of digestive organs; Z80.49 Family history of malignant neoplasm of other genital organs; Z82.3 Family history of stroke; Z82.49 Family history of ischemic heart disease and other diseases of the circulatory system; Z83.3 Family history of diabetes mellitus; Z87.891 Personal history of nicotine dependence; Z90.49 Acquired absence of other specified parts of digestive tract; Z95.5 Presence of coronary angioplasty implant and graft; Z91.041 Radiographic dye allergy status; Z88.0 Allergy status to penicillin; Z88.8 Allergy status to other drugs, medicaments and biological substances; Z91.018 Allergy to other foods; Z79.82 Long term (current) use of aspirin
CPT/HCPCS: 36415; 71045; 80048; 80053; 81001; 82948; 83036; 83605; 83735; 84145; 85025; 85379; 86140; 87040; 93005; 94760; 96374; 96375; 97110; 97161; 97530; 99285; G0378; J0696; J1100; J1650; J1815; J7030

== ENCOUNTER 2021-03-15 12:22 | Inpatient (IN) | payer BC, MEDICAID ==
[~2021-03-15] VITALS: Ht 160 cm; Wt 80.0 kg
[~2021-03-15 12:22] MED LIST changes: +APIX5TAB3 PO; +CALC500T63 PO; -CHL4T; +DEC4T PO; -ESTER C PO; -[UNRECOGNIZED DRUG - CODE]; -[UNRECOGNIZED DRUG - OTHER] PO; -calcium PO
[2021-03-15 13:18] LABS: BASOPHILS # (AUTO) 0.1 X10'3 (0-0.2); BASOPHILS % (AUTO) 0.5 % (0-1); EOSINOPHILS % (AUTO) 0.2 % (0-6); HEMATOCRIT 38.5 % (35.0-45.0); HEMOGLOBIN 12.3 g/dl (12.0-16.0); LYMPHOCYTES # (AUTO) 0.8 X10'3 (1.1-4.8); LYMPHOCYTES % (AUTO) 5.1 % (21-51); MEAN CORPUSCULAR HEMOGLOBIN 25.8 PG (27.0-31.0); MEAN CORPUSCULAR VOLUME 80.6 FL (78-98); MEAN PLATELET VOLUME 6.9 FL (7.4-10.4); MONOCYTES # (AUTO) 0.9 X10'3 (0-0.9); MONOCYTES % (AUTO) 5.8 % (2-12); NEUTROPHILS # (AUTO) 13.8 X10'3 (1.8-7.7); NEUTROPHILS % (AUTO) 88.4 % (42-75); PLATELET COUNT 338 X10'3 (140-440); RED BLOOD COUNT 4.78 X10'6 (4.20-5.60); RED CELL DISTRIBUTION WIDTH 15.9 % (11.5-14.5); WHITE BLOOD COUNT 15.6 X10'3 (4.5-11.0)
[2021-03-15 13:26] LABS: CLARITY,URINE CLEAR (Clear); COLOR,URINE YELLOW (Yellow); GLUCOSE, URINE NEGATIVE (Neg); KETONES,URINE NEGATIVE (Neg); LEUKOCYTE ESTERASE ,URINE NEGATIVE (Neg); NITRITES, URINE POSITIVE (Neg); OCCULT BLOOD,URINE TRACE-INTACT (Neg); PH,URINE 5.5 (4.8-8.0); PROTEIN,URINE NEGATIVE (Neg); UROBILINOGEN,URINE 0.2 E.U/dL (0.2-1.0)
[2021-03-15 13:31] LABS: UA COLLECTION TYPE CLN CATCH MIDSTREAM
[2021-03-15 13:33] LABS: BACTERIA,URINE 4+ /HPF (Neg); MUCUS STRANDS NONE SEEN /LPF (Neg); RBC,URINE 0-2 /HPF (0-2); SQUAMOUS EPITHELIAL CELL,UR FEW /LPF (FEW); WBC,URINE 0-4 /HPF (0-4)
[2021-03-15 13:33] LABS: ALANINE AMINOTRANSFERASE 38 U/L (12-78); ALBUMIN 2.9 G/DL (3.4-5.0); ALBUMIN/GLOBULIN RATIO 0.7 (1.1-1.5); ALKALINE PHOSPHATASE 59 IU/L (46-116); ANION GAP 9 (8-16); ASPARTATE AMINO TRANSFERASE 19 U/L (10-37); BILIRUBIN,TOTAL 0.4 MG/DL (0.1-1.0); BLOOD UREA NITROGEN 28 MG/DL (7-18); BUN/CREATININE RATIO 28.9 (6.6-38.0); CALCIUM 8.7 MG/DL (8.5-10.1); CHLORIDE 105 MMOL/L (99-107); CREATININE 0.97 MG/DL (0.40-0.90); GLUCOSE 141 MG/DL (70-104); POTASSIUM 4.1 MMOL/L (3.5-5.1); SODIUM 141 MMOL/L (135-145); TOTAL CARBON DIOXIDE 27.5 MMOL/L (24-32); TOTAL PROTEIN 6.8 G/DL (6.4-8.2); eGFR 55 ML/MIN
[2021-03-15 13:37] LABS: URINE AMPHETAMINE SCREEN NEGATIVE (Neg); URINE BARBITUATE SCREEN NEGATIVE (Neg); URINE BENZODIAZEPINES SCREEN NEGATIVE (Neg); URINE CANNABINOID SCREEN NEGATIVE (Neg); URINE COCAINE SCREEN NEGATIVE (Neg); URINE METHADONE SCREEN NEGATIVE (Neg); URINE OPIATE SCREEN NEGATIVE (Neg); URINE PHENCYCLIDINE SCREEN NEGATIVE (Neg)
[2021-03-15] MEDS ORDERED: normal saline 1000ml 1,000 ML IV ONE (14:30)
[2021-03-15] MEDS ORDERED: CefTRIAXone 2gm/D5W 50ml BAG 50 ML IV ONE (14:30)
--- NOTE | 2021-03-15 15:08 | NUR ---
TO CT VIA [facility]
[2021-03-15] MEDS ORDERED: APIX2.5T PO (16:41)
[2021-03-15] MEDS ORDERED: mag hydrox/Alum hydrox/simeth 30ml oral suspension PO PRN (16:55)
[2021-03-15] MEDS ORDERED: magnesium hydroxide 30ml (MOM) UD suspension PO PRN (16:55)
[2021-03-15] MEDS ORDERED: morphine 2 MG/ML inj. syringe IV PRN ×2 (16:55)
[2021-03-15] MEDS ORDERED: ondansetron/PF 4mg/2ml inj IV PRN (16:55)
[2021-03-15] MEDS ORDERED: acetaminophen 325mg tablet PO PRN ×2 (16:55)
[2021-03-15] MEDS ORDERED: non-formulary drug (Alendronate Sodium* (Fosamax*) 1 TAB) PO SCH (17:30)
[2021-03-15] MEDS: dextrose 5%-1/2 normal saline 1,000 ML IV SCH (18:32)
[2021-03-15] MEDS: levoFLOXACIN-Levaquin 750MG/D5 150 ML IV SCH (18:40)
[2021-03-15] MEDS: sennosides 8.6mg tablet PO SCH (20:00)
[2021-03-15] MEDS: docusate sod 100mg capsule PO SCH ×2 (20:00→20:47)
[2021-03-15] MEDS: clopidogrel 75mg tablet PO SCH (20:46)
[2021-03-15] MEDS: gabapentin 300mg capsule PO SCH (20:46)
[2021-03-15] MEDS: atorvastatin 10mg tablet PO SCH (20:46)
[2021-03-16] MEDS: dextrose 5%-1/2 normal saline 1,000 ML IV SCH ×3 (02:55→16:25)
--- NOTE | 2021-03-16 06:53 | NUR ---
Patient in room ED 8. I have received report from Luci HANCOCK and had the opportunity to ask questions and assume patient care.
[2021-03-16 07:42] LABS: ALBUMIN 2.6 G/DL (3.4-5.0); ANION GAP 8 (8-16); BLOOD UREA NITROGEN 18 MG/DL (7-18); CALCIUM 8.6 MG/DL (8.5-10.1); CHLORIDE 108 MMOL/L (99-107); CREATININE 0.82 MG/DL (0.40-0.90); GLUCOSE 134 MG/DL (70-104); POTASSIUM 4.5 MMOL/L (3.5-5.1); SODIUM 142 MMOL/L (135-145); TOTAL CARBON DIOXIDE 26.5 MMOL/L (24-32); eGFR 66 ML/MIN
[2021-03-16 07:44] LABS: BASOPHILS % (AUTO) 0.3 % (0-1); EOSINOPHILS % (AUTO) 0.2 % (0-6); HEMATOCRIT 36.4 % (35.0-45.0); HEMOGLOBIN 11.7 g/dl (12.0-16.0); LYMPHOCYTES # (AUTO) 1.1 X10'3 (1.1-4.8); LYMPHOCYTES % (AUTO) 12.5 % (21-51); MEAN CORPUSCULAR HEMOGLOBIN 25.9 PG (27.0-31.0); MEAN CORPUSCULAR HGB CONC 32.3 g/dL (33.0-36.5); MEAN CORPUSCULAR VOLUME 80.4 FL (78-98); MEAN PLATELET VOLUME 7.1 FL (7.4-10.4); MONOCYTES # (AUTO) 0.9 X10'3 (0-0.9); MONOCYTES % (AUTO) 10.3 % (2-12); NEUTROPHILS % (AUTO) 76.7 % (42-75); PLATELET COUNT 314 X10'3 (140-440); RED BLOOD COUNT 4.53 X10'6 (4.20-5.60); RED CELL DISTRIBUTION WIDTH 16.3 % (11.5-14.5); WHITE BLOOD COUNT 9.1 X10'3 (4.5-11.0)
[2021-03-16] MEDS: docusate sod 100mg capsule PO SCH ×4 (08:00→19:47)
[2021-03-16] MEDS ORDERED: niacin 500mg ER (Niaspan) tablet PO SCH (08:00)
[2021-03-16 08:45] VITALS: BP 131/54
[2021-03-16] MEDS: pantoprazole 40mg Tablet.DR PO SCH (09:25)
[2021-03-16] MEDS: OMEGA-3/DHA/EPA/FISH OIL 1 EACH CAPSULE.DR PO SCH (09:25)
[2021-03-16] MEDS: levoFLOXACIN-Levaquin 750MG/D5 150 ML IV SCH (09:25)
[2021-03-16] MEDS: gabapentin 300mg capsule PO SCH ×3 (09:26→19:48)
[2021-03-16] MEDS: magnesium hydroxide 30ml (MOM) UD suspension PO SCH (09:26)
[2021-03-16] MEDS: sennosides 8.6mg tablet PO SCH ×2 (09:27→19:47)
[2021-03-16] MEDS: enoxaparin 40mg/0.4ml syringe SUBCUT SCH (09:27)
[2021-03-16] MEDS: calcium carbonate 500mg tablet PO SCH (09:29)
[2021-03-16 15:58] VITALS: BP 108/56
[2021-03-16] MEDS ORDERED: MESSAGE TO PHARMACY PO ONE (18:00)
[2021-03-16] MEDS ORDERED: insulin Lispro (HumaLOG) vial - multi-dose SQ SCH (18:00)
[2021-03-16] MEDS ORDERED: dextrose 50%-water 50ml dispensing syringe IV PRN ×2 (18:00)
[2021-03-16] MEDS ORDERED: dextrose ORAL solution 15 GM/59 ML bottle PO PRN ×2 (18:00)
[2021-03-16] MEDS ORDERED: glucagon, human recombinant 1mg kit SUBCUT PRN (18:00)
[2021-03-16 18:30] VITALS: BP_SYST 106; BP_DIAS 49; BP_DIAS 61
[2021-03-16] MEDS: atorvastatin 10mg tablet PO SCH (19:46)
[2021-03-16] MEDS: clopidogrel 75mg tablet PO SCH (19:48)
[2021-03-16] MEDS: lactobacillus rhamnosus 10,000 MMU CELLS/CAPSULE PO SCH (19:48)
[2021-03-16] MEDS ORDERED: insulin glargine (Lantus) pen - multi-dose SQ SCH (21:00)
[2021-03-16 22:00] VITALS: BP 106/49
[2021-03-17] MEDS: dextrose 5%-1/2 normal saline 1,000 ML IV SCH (01:19)
[2021-03-17 06:00] VITALS: BP 139/64
[2021-03-17 06:11] LABS: BASOPHILS # (AUTO) 0.1 X10'3 (0-0.2); BASOPHILS % (AUTO) 0.9 % (0-1); EOSINOPHILS # (AUTO) 0.2 X10'3 (0-0.9); EOSINOPHILS % (AUTO) 3.3 % (0-6); HEMATOCRIT 35.5 % (35.0-45.0); HEMOGLOBIN 11.4 g/dl (12.0-16.0); LYMPHOCYTES % (AUTO) 18.3 % (21-51); MEAN CORPUSCULAR HEMOGLOBIN 25.8 PG (27.0-31.0); MEAN CORPUSCULAR VOLUME 80.7 FL (78-98); MEAN PLATELET VOLUME 6.8 FL (7.4-10.4); MONOCYTES # (AUTO) 0.6 X10'3 (0-0.9); MONOCYTES % (AUTO) 10.3 % (2-12); NEUTROPHILS # (AUTO) 3.8 X10'3 (1.8-7.7); NEUTROPHILS % (AUTO) 67.2 % (42-75); PLATELET COUNT 265 X10'3 (140-440); RED CELL DISTRIBUTION WIDTH 16.4 % (11.5-14.5); WHITE BLOOD COUNT 5.6 X10'3 (4.5-11.0)
[2021-03-17 06:15] LABS: ALBUMIN 2.3 G/DL (3.4-5.0); ANION GAP 8 (8-16); BLOOD UREA NITROGEN 12 MG/DL (7-18); BUN/CREATININE RATIO 16.9 (6.6-38.0); CALCIUM 7.7 MG/DL (8.5-10.1); CHLORIDE 107 MMOL/L (99-107); CREATININE 0.71 MG/DL (0.40-0.90); GLUCOSE 123 MG/DL (70-104); POTASSIUM 3.7 MMOL/L (3.5-5.1); SODIUM 142 MMOL/L (135-145); TOTAL CARBON DIOXIDE 26.9 MMOL/L (24-32); eGFR 78 ML/MIN
[2021-03-17 06:38] LABS: IRON 27 UG/DL (49-151)
[2021-03-17 06:39] LABS: % IRON SATURATION 11 % (11-46); TOTAL IRON BINDING CAPACITY 244 UG/DL (259-388)
[2021-03-17 07:06] LABS: FERRITIN 61 NG/ML (8-252)
[2021-03-17] MEDS ORDERED: levoFLOXACIN-Levaquin 750MG/D5 150 ML IV SCH ×2 (08:00→08:26)
[2021-03-17] MEDS ORDERED: niacin 500mg ER (Niaspan) tablet PO SCH (08:00)
--- NOTE | 2021-03-17 08:16 | NUR ---
Diabetes Consult: A1C 7.3 well controlled and appropriate for age, DM education not indicated at this time, will continue to monitor. Addendum: 03/17/21 at [address] Amended: Links added.
[2021-03-17] MEDS: magnesium hydroxide 30ml (MOM) UD suspension PO SCH (08:29)
[2021-03-17] MEDS: enoxaparin 40mg/0.4ml syringe SUBCUT SCH (08:30)
[2021-03-17] MEDS: docusate sod 100mg capsule PO SCH (08:30)
[2021-03-17] MEDS: sennosides 8.6mg tablet PO SCH (08:30)
[2021-03-17] MEDS: OMEGA-3/DHA/EPA/FISH OIL 1 EACH CAPSULE.DR PO SCH (08:30)
[2021-03-17] MEDS: gabapentin 300mg capsule PO SCH (08:31)
[2021-03-17] MEDS: lactobacillus rhamnosus 10,000 MMU CELLS/CAPSULE PO SCH (08:31)
[2021-03-17] MEDS: pantoprazole 40mg Tablet.DR PO SCH (08:31)
[2021-03-17] MEDS: calcium carbonate 500mg tablet PO SCH (08:32)
--- NOTE | 2021-03-17 10:14 | NUR ---
Patient refused am insulin blood glucose 117
--- NOTE | 2021-03-17 11:32 | NUR ---
PAGER ID: [phone] MESSAGE: [phone] patient was covid + 02/26 and had a recent admission to the covid unit. Is there a need for a covid test because she will still appear positive? not having covid symptoms. leti [id number]
[2021-03-17 11:40] VITALS: BP 103/54
[2021-03-17] MEDS ORDERED: LEVO500T89 PO (12:01)
--- NOTE | 2021-03-17 12:14 | NUR ---
PAGER ID: [phone] MESSAGE: Jeferson Mckeon. Daughter is very upset that the patient is being discharged and feels she isn't okay to come home, is there any way you can call and speak to her? Lizzie is her name and number is [phone] Nikki [facility]5
--- NOTE | 2021-03-17 13:01 | NUR ---
Spoke with daughter, she will be here to vegetable picker patient around [phone] as she is working and has no one to help pick her up.
--- NOTE | 2021-03-17 17:27 | NUR ---
PAGER ID: [phone] MESSAGE: [id number], Govea daughter is supposed to be picking up at 1900. Blood pressure right now is 85/64. Nikki [phone]
--- NOTE | 2021-03-17 18:05 | NUR ---
[facility] [address], daughter Lizzie smith, spoke to her on the phone regarding patients status and discharge and her instructions.
--- NOTE | 2021-03-17 18:38 | NUR ---
Problems reprioritized. Patient report given, questions answered & plan of care reviewed with Angie HANCOCK.
--- NOTE | 2021-03-17 19:00 | NUR ---
DCD PER W/C ALERT AND ORIENTED BY BULMARO HANCOCK.
[2021-03-18] MEDS ORDERED: levoFLOXACIN-Levaquin 750MG/D5 150 ML IV SCH (08:00)
== END 2021-03-17 19:00 | disposition home or self-care (01) | DRG 193 ==
LOC: ER 12:22 → ED HOLD 16:59 → EDBEDREQ 03-16 05:13 → ORTHO 4S 03-16 08:19
PROVIDERS: ADMIT Internal Medicine; ATTEND Internal Medicine
DX: J18.9 Pneumonia, unspecified organism (principal); G93.41 Metabolic encephalopathy; D64.9 Anemia, unspecified; E78.5 Hyperlipidemia, unspecified; E11.40 Type 2 diabetes mellitus with diabetic neuropathy, unspecified; I25.10 Atherosclerotic heart disease of native coronary artery without angina pectoris; J45.909 Unspecified asthma, uncomplicated; E86.0 Dehydration; J32.9 Chronic sinusitis, unspecified; G89.29 Other chronic pain; K21.9 Gastro-esophageal reflux disease without esophagitis; M54.9 Dorsalgia, unspecified; Z90.49 Acquired absence of other specified parts of digestive tract; Z88.0 Allergy status to penicillin; Z88.8 Allergy status to other drugs, medicaments and biological substances; Z91.041 Radiographic dye allergy status; Z91.012 Allergy to eggs; Z82.3 Family history of stroke; Z83.3 Family history of diabetes mellitus; Z80.0 Family history of malignant neoplasm of digestive organs; Z80.59 Family history of malignant neoplasm of other urinary tract organ; Z79.899 Other long term (current) drug therapy; Z86.16 Personal history of COVID-19
CPT/HCPCS: 36415; 70450; 71045; 74176; 80048; 80053; 80305; 81001; 82607; 82728; 82948; 83036; 83540; 83550; 83605; 83880; 84145; 85025; 87040; 87077; 87081; 87088; 87186; 96365; 99285; G0378; J0696; J1650; J1815; J1956; J7030

== ENCOUNTER 2021-03-27 18:21 | Emergency (ER) | payer BC, MEDICAID ==
[~2021-03-27] VITALS: Ht 162.6 cm; Wt 81.6 kg
[~2021-03-27 18:21] MED LIST changes: +APIX2.5T PO; -APIX5TAB3 PO; -DEC4T PO; +LEVO500T89 PO
[2021-03-27 18:27] VITALS: BP 111/82
[2021-03-27 19:35] LABS: BASOPHILS # (AUTO) 0.1 X10'3 (0-0.2); EOSINOPHILS # (AUTO) 0.2 X10'3 (0-0.9); EOSINOPHILS % (AUTO) 2.7 % (0-6); HEMATOCRIT 32.9 % (35.0-45.0); HEMOGLOBIN 10.8 g/dl (12.0-16.0); LYMPHOCYTES # (AUTO) 1.2 X10'3 (1.1-4.8); LYMPHOCYTES % (AUTO) 16.9 % (21-51); MEAN CORPUSCULAR HEMOGLOBIN 26.2 PG (27.0-31.0); MEAN CORPUSCULAR HGB CONC 32.7 g/dL (33.0-36.5); MEAN CORPUSCULAR VOLUME 80.1 FL (78-98); MEAN PLATELET VOLUME 6.5 FL (7.4-10.4); MONOCYTES # (AUTO) 0.7 X10'3 (0-0.9); MONOCYTES % (AUTO) 9.5 % (2-12); NEUTROPHILS # (AUTO) 4.9 X10'3 (1.8-7.7); NEUTROPHILS % (AUTO) 69.9 % (42-75); PLATELET COUNT 345 X10'3 (140-440); RED BLOOD COUNT 4.11 X10'6 (4.20-5.60); RED CELL DISTRIBUTION WIDTH 16.8 % (11.5-14.5)
[2021-03-27 19:36] LABS: ALANINE AMINOTRANSFERASE 21 U/L (12-78); ALBUMIN 3.1 G/DL (3.4-5.0); ALBUMIN/GLOBULIN RATIO 0.8 (1.1-1.5); ALKALINE PHOSPHATASE 58 IU/L (46-116); ANION GAP 7 (8-16); ASPARTATE AMINO TRANSFERASE 16 U/L (10-37); BILIRUBIN,TOTAL 0.3 MG/DL (0.1-1.0); BLOOD UREA NITROGEN 20 MG/DL (7-18); BUN/CREATININE RATIO 23.5 (6.6-38.0); CHLORIDE 107 MMOL/L (99-107); CREATININE 0.85 MG/DL (0.40-0.90); GLUCOSE 123 MG/DL (70-104); POTASSIUM 3.9 MMOL/L (3.5-5.1); SODIUM 145 MMOL/L (135-145); TOTAL CARBON DIOXIDE 31.4 MMOL/L (24-32); TOTAL PROTEIN 6.9 G/DL (6.4-8.2); eGFR 64 ML/MIN
[2021-03-27] MEDS ORDERED: ondansetron/PF 4mg/2ml inj IV ONE (22:25)
[2021-03-27] MEDS ORDERED: normal saline 1000ML IV soln IVB ONE (22:25)
--- NOTE | 2021-03-28 01:15 | NUR ---
Patient's daughter arrived to picked up after multiple calls were made. She became extremely hostile with the triage nurse which required security presence. her daughter was unwilling to listen to the triage nurse and began yelling and threatening staff. she was adivsed to return to medical records on a weekday if she wasn't satisfied with the information provided. she continued to yell.
--- NOTE | 2021-03-28 01:30 | NUR ---
AFTER SEVERAL ATTEMPTS TO CONTACT, PT'S DAUGHTER ARRIVED TO PROVIDE TRANSPORTATION FOR PT. DAUGHTER BECAME VERY AGITATED AND BEGAN YELLING AT STAFF. TRIAGE NURSE ATTEMPTED TO ANSWER DAUGHTER'S QUESTIONS AND CONCERNS REGARDING PT. HOWEVER, DAUGHTER CONSISTENTLY INTERUPTED AND RAISED HER VOICE AT NURSE DURING EXPLANATION. MD WAS NOTIFIED OF DAUGHTER'S WISHES TO SPEAK WITH HIM.
[2021-03-28 01:33] LABS: CLARITY,URINE CLEAR (Clear); COLOR,URINE YELLOW (Yellow); UA COLLECTION TYPE CLN CATCH MIDSTREAM
[2021-03-28 01:34] LABS: GLUCOSE, URINE NEGATIVE (Neg); KETONES,URINE NEGATIVE (Neg); NITRITES, URINE NEGATIVE (Neg); OCCULT BLOOD,URINE SMALL (Neg); PH,URINE 6.5 (4.8-8.0); PROTEIN,URINE NEGATIVE (Neg)
[2021-03-28 01:35] LABS: LEUKOCYTE ESTERASE ,URINE NEGATIVE (Neg); UROBILINOGEN,URINE 0.2 E.U/dL (0.2-1.0)
[2021-03-28 01:37] LABS: BACTERIA,URINE NONE SEEN /HPF (Neg); SQUAMOUS EPITHELIAL CELL,UR FEW /LPF (FEW); WBC,URINE 0-4 /HPF (0-4)
--- NOTE | 2021-03-28 01:42 | NUR ---
Dr Balderas wanted to talk to the daughter, but was not able too as he was needed in an emergency. I spoke with the daughter on dc and she was just as sweet as could be to me, despite hollaring at all my staff earlier. Lg had her mom in the w/c and was going to w/c the pt out and the daughter said "I don't want you anywhere near me, you're a bully." Lg walked away and tech proceeded to take pt out to the car.
== END 2021-03-28 01:44 | disposition home or self-care (01) ==
LOC: ER 18:22
DX: U07.1 COVID-19 (principal); R05 Cough; R19.7 Diarrhea, unspecified; E86.0 Dehydration; R11.2 Nausea with vomiting, unspecified; I25.10 Atherosclerotic heart disease of native coronary artery without angina pectoris; J45.909 Unspecified asthma, uncomplicated; E11.9 Type 2 diabetes mellitus without complications; G89.29 Other chronic pain; Z90.89 Acquired absence of other organs; Z90.49 Acquired absence of other specified parts of digestive tract; Z98.890 Other specified postprocedural states; Z88.0 Allergy status to penicillin; Z88.8 Allergy status to other drugs, medicaments and biological substances; Z79.2 Long term (current) use of antibiotics; Z79.82 Long term (current) use of aspirin; Z79.899 Other long term (current) drug therapy
CPT/HCPCS: 36415; 70450; 71045; 80053; 81001; 85025; 93005; 96361; 96374; 99285; J2405; J7030

== ENCOUNTER 2022-08-15 11:15 | Emergency (ER) | payer MEDICARE, MEDICAID ==
[~2022-08-15] VITALS: Ht 162.6 cm; Wt 72.3 kg
[~2022-08-15 11:15] MED LIST changes: -LEVO500T89 PO; +SIMV-341 PO; -SIMV10TA2 PO; +[UNRECOGNIZED DRUG - CODE] PO; -[UNRECOGNIZED DRUG - CODE] PO
[2022-08-15 14:47] LABS: BASOPHILS # (AUTO) 0.1 X10'3 (0-0.2); BASOPHILS % (AUTO) 0.6 % (0-1); EOSINOPHILS % (AUTO) 0.2 % (0-6); HEMATOCRIT 39.2 % (35.0-45.0); HEMOGLOBIN 12.8 g/dl (12.0-16.0); LYMPHOCYTES # (AUTO) 1.8 X10'3 (1.1-4.8); LYMPHOCYTES % (AUTO) 21.5 % (21-51); MEAN CORPUSCULAR HEMOGLOBIN 28.1 PG (27.0-31.0); MEAN CORPUSCULAR HGB CONC 32.6 g/dL (33.0-36.5); MEAN CORPUSCULAR VOLUME 86.4 FL (78-98); MEAN PLATELET VOLUME 6.7 FL (7.4-10.4); MONOCYTES % (AUTO) 12.1 % (2-12); NEUTROPHILS # (AUTO) 5.6 X10'3 (1.8-7.7); NEUTROPHILS % (AUTO) 65.6 % (42-75); PLATELET COUNT 238 X10'3 (140-440); RED BLOOD COUNT 4.54 X10'6 (4.20-5.60); RED CELL DISTRIBUTION WIDTH 13.6 % (11.5-14.5); WHITE BLOOD COUNT 8.6 X10'3 (4.5-11.0)
[2022-08-15 15:08] LABS: ALANINE AMINOTRANSFERASE 22 U/L (12-78); ALBUMIN 3.3 G/DL (3.4-5.0); ALBUMIN/GLOBULIN RATIO 0.9 (1.1-1.5); ALKALINE PHOSPHATASE 54 IU/L (46-116); ANION GAP 6 (8-16); ASPARTATE AMINO TRANSFERASE 20 U/L (10-37); BILIRUBIN,TOTAL 0.5 MG/DL (0.1-1.0); BLOOD UREA NITROGEN 16 MG/DL (7-18); BUN/CREATININE RATIO 20.5 (6.6-38.0); CALCIUM 9.2 MG/DL (8.5-10.1); CHLORIDE 102 MMOL/L (99-107); CREATININE 0.78 MG/DL (0.40-0.90); GLUCOSE 112 MG/DL (70-104); MAGNESIUM 2.2 MG/DL (1.5-2.4); POTASSIUM 4.4 MMOL/L (3.5-5.1); SODIUM 139 MMOL/L (135-145); TOTAL CARBON DIOXIDE 31.5 MMOL/L (24-32); eGFR 70 ML/MIN
[2022-08-15] MEDS ORDERED: CefTRIAXone 2gm/D5W 50ml BAG 50 ML IV ONE (15:55)
[2022-08-15] MEDS ORDERED: HYDROcodone/acetaminophen 5mg/325mg tablet PO ONE (16:00)
[2022-08-15] MEDS ORDERED: LEVO-65 PO (16:00)
[2022-08-15 17:37] VITALS: BP 115/68
== END 2022-08-15 17:39 | disposition home or self-care (01) ==
LOC: ER 11:17
DX: J40 Bronchitis, not specified as acute or chronic (principal); I51.9 Heart disease, unspecified; J45.909 Unspecified asthma, uncomplicated; E11.9 Type 2 diabetes mellitus without complications; G89.29 Other chronic pain; M54.9 Dorsalgia, unspecified; Z90.49 Acquired absence of other specified parts of digestive tract; Z98.890 Other specified postprocedural states; Z88.8 Allergy status to other drugs, medicaments and biological substances; Z88.0 Allergy status to penicillin; Z88.6 Allergy status to analgesic agent; Z91.018 Allergy to other foods; Z79.899 Other long term (current) drug therapy; Z79.82 Long term (current) use of aspirin; Z79.1 Long term (current) use of non-steroidal anti-inflammatories (NSAID); Z79.2 Long term (current) use of antibiotics
CPT/HCPCS: 36415; 71045; 80053; 83735; 83880; 84145; 84484; 85025; 93005; 96365; 99285; J0696

== ENCOUNTER 2023-10-16 12:52 | Inpatient (IN) | payer MEDICARE, MEDICAID ==
[~2023-10-16] VITALS: Ht 167.6 cm; Wt 83.0 kg
[2023-10-16] MEDS ORDERED: iohexol 350MG/ML 100ml bottle IV ONE (12:54)
[2023-10-16 13:34] LABS: BASOPHILS # (AUTO) 0.1 X10'3 (0-0.2); BASOPHILS % (AUTO) 1.3 % (0-1); EOSINOPHILS # (AUTO) 0.3 X10'3 (0-0.9); EOSINOPHILS % (AUTO) 3.9 % (0-6); HEMATOCRIT 37.8 % (35.0-45.0); HEMOGLOBIN 12.3 g/dl (12.0-16.0); LYMPHOCYTES # (AUTO) 2.7 X10'3 (1.1-4.8); LYMPHOCYTES % (AUTO) 35.4 % (21-51); MEAN CORPUSCULAR HEMOGLOBIN 27.5 PG (27.0-31.0); MEAN CORPUSCULAR HGB CONC 32.6 g/dL (33.0-36.5); MEAN CORPUSCULAR VOLUME 84.3 FL (78-98); MEAN PLATELET VOLUME 6.8 FL (7.4-10.4); MONOCYTES # (AUTO) 0.8 X10'3 (0-0.9); MONOCYTES % (AUTO) 10.8 % (2-12); NEUTROPHILS # (AUTO) 3.7 X10'3 (1.8-7.7); NEUTROPHILS % (AUTO) 48.6 % (42-75); PLATELET COUNT 288 X10'3 (140-440); RED BLOOD COUNT 4.48 X10'6 (4.20-5.60); RED CELL DISTRIBUTION WIDTH 14.3 % (11.5-14.5); WHITE BLOOD COUNT 7.5 X10'3 (4.5-11.0)
[2023-10-16 13:39] LABS: ALBUMIN 3.1 G/DL (3.4-5.0); ANION GAP 9 (8-16); BLOOD UREA NITROGEN 16 MG/DL (7-18); BUN/CREATININE RATIO 20.3 (10.0-20.0); CALCIUM 9.1 MG/DL (8.5-10.1); CHLORIDE 105 MMOL/L (99-107); CREATININE 0.79 MG/DL (0.40-0.90); GLUCOSE 95 MG/DL (70-104); SODIUM 143 MMOL/L (135-145); eCRCL 48 ML/MIN; eGFR 69 ML/MIN
[2023-10-16 13:42] LABS: APTT 21 SECONDS (22-32); INR 0.9 INR; PROTHROMBIN TIME 10.2 SECONDS (9.0-12.0)
[2023-10-16 13:43] LABS: POTASSIUM 4.3 MMOL/L (3.5-5.1)
[2023-10-16] MEDS: aspirin 325mg tablet, delayed-release (Ecotrin) PO ONE (14:22)
[2023-10-16] MEDS ORDERED: ondansetron/PF 4mg/2ml inj IV PRN (15:15)
[2023-10-16] MEDS ORDERED: magnesium 2GM in 50ml NS 50 ML IV PRN (15:15)
[2023-10-16] MEDS ORDERED: mag hydrox/Alum hydrox/simeth 30ml oral suspension PO PRN (15:15)
[2023-10-16] MEDS ORDERED: potassium Cl 20 mEq SR tablet PO PRN ×2 (15:15)
[2023-10-16] MEDS ORDERED: magnesium 4gm in 100ml NS 100 ML IV PRN (15:15)
[2023-10-16] MEDS ORDERED: potassium Cl 40MEQ/1/2NS 520ml 520 ML IV PRN (15:15)
[2023-10-16] MEDS: docusate sod 100mg capsule PO SCH (20:00)
[2023-10-16] MEDS: K and/or MAG REPLACEMENT MC SCH (20:00)
[2023-10-16] MEDS: enoxaparin 40mg/0.4ml syringe SQ SCH (23:18)
[2023-10-17] VITALS (7 sets, daily range): BP systolic 101–152; BP diastolic 59–67; PULSE 62–79; RESP 14–18; TEMP 97.7–98.4; O2SAT 92–98
[2023-10-17] MEDS: LIDOcaine 5% patch TP ONE (00:05)
[2023-10-17 03:33] LABS: BASOPHILS # (AUTO) 0.1 X10'3 (0-0.2); BASOPHILS % (AUTO) 1.3 % (0-1); EOSINOPHILS # (AUTO) 0.2 X10'3 (0-0.9); EOSINOPHILS % (AUTO) 2.5 % (0-6); HEMATOCRIT 38.6 % (35.0-45.0); HEMOGLOBIN 12.6 g/dl (12.0-16.0); LYMPHOCYTES # (AUTO) 1.7 X10'3 (1.1-4.8); LYMPHOCYTES % (AUTO) 24.6 % (21-51); MEAN CORPUSCULAR HEMOGLOBIN 27.7 PG (27.0-31.0); MEAN CORPUSCULAR HGB CONC 32.6 g/dL (33.0-36.5); MEAN CORPUSCULAR VOLUME 84.8 FL (78-98); MEAN PLATELET VOLUME 6.6 FL (7.4-10.4); MONOCYTES # (AUTO) 0.9 X10'3 (0-0.9); MONOCYTES % (AUTO) 12.4 % (2-12); NEUTROPHILS # (AUTO) 4.2 X10'3 (1.8-7.7); NEUTROPHILS % (AUTO) 59.2 % (42-75); PLATELET COUNT 284 X10'3 (140-440); RED BLOOD COUNT 4.55 X10'6 (4.20-5.60); RED CELL DISTRIBUTION WIDTH 13.9 % (11.5-14.5)
[2023-10-17 03:39] LABS: ALANINE AMINOTRANSFERASE 24 U/L (12-78); ALBUMIN/GLOBULIN RATIO 0.8 (1.1-1.5); ALKALINE PHOSPHATASE 64 IU/L (46-116); ANION GAP 5 (8-16); ASPARTATE AMINO TRANSFERASE 23 U/L (10-37); BILIRUBIN,TOTAL 0.5 MG/DL (0.1-1.0); BLOOD UREA NITROGEN 14 MG/DL (7-18); BUN/CREATININE RATIO 16.7 (10.0-20.0); CALCIUM 8.8 MG/DL (8.5-10.1); CHLORIDE 106 MMOL/L (99-107); CREATININE 0.84 MG/DL (0.40-0.90); GLUCOSE 111 MG/DL (70-104); MAGNESIUM 1.8 MG/DL (1.5-2.4); POTASSIUM 4.2 MMOL/L (3.5-5.1); SODIUM 143 MMOL/L (135-145); TOTAL PROTEIN 6.7 G/DL (6.4-8.2); eCRCL 45 ML/MIN; eGFR 64 ML/MIN
[2023-10-17] MEDS ORDERED: METF-436 PO (05:33)
[2023-10-17] MEDS ORDERED: ATOR10TA70 PO (05:34)
[2023-10-17] MEDS ORDERED: DONE-46 PO (05:38)
[2023-10-17] MEDS ORDERED: MELA5CAP PO (05:40)
[2023-10-17] MEDS ORDERED: gabapentin 300mg capsule PO SCH (13:00)
[2023-10-17] MEDS: docusate sod 100mg capsule PO SCH (19:19)
[2023-10-17] MEDS: gabapentin 300mg capsule PO SCH (19:20)
[2023-10-17] MEDS: donepezil 5mg tablet PO SCH (20:10)
[2023-10-17] MEDS: clopidogrel 75mg tablet PO SCH (20:10)
[2023-10-17] MEDS: atorvastatin 10mg tablet PO SCH (20:10)
[2023-10-17] MEDS: Melatonin 3mg tablet PO SCH (20:10)
[2023-10-17] MEDS: acetaminophen 325mg tablet PO PRN (22:36)
[2023-10-17] MEDS: LIDOcaine 5% patch TP SCH (22:45)
[2023-10-18 02:00] VITALS: BP 95/52; PULSE 63; RESP 14; TEMP 97.6; O2SAT 96
[2023-10-18 06:00] VITALS: BP 141/64; PULSE 55; RESP 14; TEMP 98.2; O2SAT 96
[2023-10-18 06:56] LABS: ALANINE AMINOTRANSFERASE 26 U/L (12-78); ALBUMIN 2.8 G/DL (3.4-5.0); ALBUMIN/GLOBULIN RATIO 0.8 (1.1-1.5); ALKALINE PHOSPHATASE 59 IU/L (46-116); ANION GAP 3 (8-16); ASPARTATE AMINO TRANSFERASE 23 U/L (10-37); BILIRUBIN,TOTAL 0.5 MG/DL (0.1-1.0); BLOOD UREA NITROGEN 10 MG/DL (7-18); CALCIUM 8.2 MG/DL (8.5-10.1); CHLORIDE 107 MMOL/L (99-107); CREATININE 0.77 MG/DL (0.40-0.90); GLUCOSE 99 MG/DL (70-104); MAGNESIUM 1.7 MG/DL (1.5-2.4); POTASSIUM 3.5 MMOL/L (3.5-5.1); SODIUM 140 MMOL/L (135-145); TOTAL CARBON DIOXIDE 29.7 MMOL/L (24-32); TOTAL PROTEIN 6.4 G/DL (6.4-8.2); eCRCL 49 ML/MIN; eGFR 71 ML/MIN
[2023-10-18 07:21] LABS: BASOPHILS # (AUTO) 0.1 X10'3 (0-0.2); BASOPHILS % (AUTO) 1.4 % (0-1); EOSINOPHILS # (AUTO) 0.2 X10'3 (0-0.9); EOSINOPHILS % (AUTO) 4.7 % (0-6); HEMATOCRIT 37.6 % (35.0-45.0); HEMOGLOBIN 12.3 g/dl (12.0-16.0); LYMPHOCYTES # (AUTO) 1.3 X10'3 (1.1-4.8); LYMPHOCYTES % (AUTO) 28.4 % (21-51); MEAN CORPUSCULAR HEMOGLOBIN 27.4 PG (27.0-31.0); MEAN CORPUSCULAR HGB CONC 32.7 g/dL (33.0-36.5); MEAN PLATELET VOLUME 6.6 FL (7.4-10.4); MONOCYTES # (AUTO) 0.8 X10'3 (0-0.9); MONOCYTES % (AUTO) 16.7 % (2-12); NEUTROPHILS # (AUTO) 2.2 X10'3 (1.8-7.7); NEUTROPHILS % (AUTO) 48.8 % (42-75); PLATELET COUNT 269 X10'3 (140-440); RED BLOOD COUNT 4.48 X10'6 (4.20-5.60); WHITE BLOOD COUNT 4.6 X10'3 (4.5-11.0)
[2023-10-18] MEDS: magnesium hydroxide 30ml (MOM) UD suspension PO SCH (08:00)
[2023-10-18] MEDS: OMEGA-3/DHA/EPA/FISH OIL 1 EACH CAPSULE.DR PO SCH (08:38)
[2023-10-18] MEDS: calcium carbonate 500mg tablet PO SCH (08:38)
[2023-10-18] MEDS: ascorbic acid 500mg tablet PO SCH (08:39)
[2023-10-18 09:03] LABS: BURR CELLS FEW; ELLIPTOCYTES FEW; PLATELET ESTIMATE NORMAL; TOTAL CELLS COUNTED 100
[2023-10-18 10:00] VITALS: BP 110/57; PULSE 83; RESP 16; TEMP 97.6; O2SAT 95
== END 2023-10-18 15:05 | DRG 100 ==
LOC: ER 12:52 → ED HOLD 15:31 → ORTHO 4S 10-17 08:03
PROVIDERS: ADMIT Family Medicine; ATTEND Family Medicine
PROC: 4A00X4Z Measurement of Central Nervous Electrical Activity, External Approach (ICD-10-PCS; principal; 2023-10-17)
DX: G40.A09 Absence epileptic syndrome, not intractable, without status epilepticus (principal); G93.41 Metabolic encephalopathy; E78.5 Hyperlipidemia, unspecified; F03.90 Unspecified dementia, unspecified severity, without behavioral disturbance, psychotic disturbance, mood disturbance, and anxiety; M54.9 Dorsalgia, unspecified; J45.909 Unspecified asthma, uncomplicated; G89.29 Other chronic pain; I25.10 Atherosclerotic heart disease of native coronary artery without angina pectoris; I10 Essential (primary) hypertension; K21.9 Gastro-esophageal reflux disease without esophagitis; R73.01 Impaired fasting glucose; G62.9 Polyneuropathy, unspecified; Z66 Do not resuscitate; Z82.49 Family history of ischemic heart disease and other diseases of the circulatory system; Z90.49 Acquired absence of other specified parts of digestive tract; Z88.0 Allergy status to penicillin; Z87.891 Personal history of nicotine dependence; Z80.0 Family history of malignant neoplasm of digestive organs; Z79.84 Long term (current) use of oral hypoglycemic drugs; Z80.49 Family history of malignant neoplasm of other genital organs; Z85.3 Personal history of malignant neoplasm of breast; Z88.8 Allergy status to other drugs, medicaments and biological substances; Z91.012 Allergy to eggs; Z91.02 Food additives allergy status; Z95.5 Presence of coronary angioplasty implant and graft; Z83.3 Family history of diabetes mellitus; Z82.3 Family history of stroke; Z91.041 Radiographic dye allergy status; Z91.048 Other nonmedicinal substance allergy status; Z88.6 Allergy status to analgesic agent; Z86.73 Personal history of transient ischemic attack (TIA), and cerebral infarction without residual deficits
CPT/HCPCS: 36415; 70450; 70551; 71045; 80048; 80053; 82948; 83735; 85007; 85025; 85610; 85730; 93005; 93306; 95816; 99285; G0378; J1650; J3490; Q9967